=== PATIENT | male | born 1990 | race African-American/Black ===

== ENCOUNTER 2020-09-25 11:10 | Outpatient (REF) | payer OTHER, SELFPAY ==
--- NOTE | 2020-09-25 11:16 | XR_ITS ---
EXAMINATION: XR SHOULDER, LEFT CLINICAL INFORMATION: Left shoulder pain. COMPARISON: None TECHNIQUE: AP external rotation, Grashey, scapular Y, and axillary views of the left shoulder. FINDINGS: The bones and soft tissues are normal. No fracture. Glenohumeral and acromioclavicular alignment is anatomic with normal joint space. No abnormal soft tissue calcifications. XR/XR shoulder LT min 2V IMPRESSION: Unremarkable left shoulder.
== END 2020-09-25 11:11 | disposition home or self-care (01) ==
LOC: HO.XRAY 11:10
PROVIDERS: PCP Internal Medicine; Visit Provider Internal Medicine
DX: M25.519 Pain in unspecified shoulder (principal)
CPT/HCPCS: 73030

== ENCOUNTER 2021-04-08 07:46 | Outpatient (REF) | payer OTHER, SELFPAY ==
[2021-04-08 08:27] LABS: MANUAL DIFF FLAG NO
[2021-04-08 08:35] LABS: Basophils Absolute Auto 0.1 X10*3/uL (0.0-0.2); Basophils Percent Auto 0.5 % (0-2); Eosinophils Absolute Auto 0.5 X10*3/uL (0.0-0.4); Eosinophils Percent Auto 5.1 % (0-4); Hemoglobin 15.5 g/dl (14.0-18.0); Imm Gran Abs Auto 0.03 X10*3/uL (0.00-0.03); Imm Gran Pct Auto 0.3 % (0.0-0.4); Lymphocytes Absolute Auto 2.9 X10*3/uL (1.2-4.9); Lymphocytes Percent Auto 31.2 % (20-40); Mean Corpuscular HGB Conc 33.7 g/dl (31.0-36.0); Mean Corpuscular Hemoglobin 28.6 pg (27.0-33.0); Mean Corpuscular Volume 84.9 fL (80-98); Mean Platelet Volume 10.2 fL (9.4-12.4); Monocytes Absolute Auto 0.8 X10*3/uL (0.1-1.2); Monocytes Percent Auto 8.7 % (2-11); Neutrophils Absolute Auto 5.1 X10*3/uL (2.0-8.3); Neutrophils Percent Auto 54.2 % (45-73); Platelet Count 241 X10*3/uL (160-400); Red Blood Count 5.42 X10*6/uL (4.60-5.80); Red Cell Distribution Width 12.8 % (11.0-16.0); White Blood Count 9.4 X10*3/uL (4.8-10.8)
[2021-04-08 08:49] LABS: Alanine Aminotransferase 28 U/L (0-40); Albumin Level 4.6 g/dL (3.5-5.0); Alkaline Phosphatase 72 U/L (39-117); Anion Gap 13 (12-20); Aspartate Amino Transferase 27 U/L (5-37); Bilirubin Total 0.5 mg/dL (0.0-1.0); Blood Urea Nitrogen 12 mg/dL (9-16); Calcium 9.6 mg/dL (8.4-10.2); Carbon Dioxide 27 mmol/L (22-29); Chloride 105 mmol/L (96-108); Cholesterol 190 mg/dL; Estimated Glomerular Filt Rate > 60; Glucose Fasting 92 mg/dL (60-99); HDL Cholesterol 47 mg/dL; LDL Cholesterol Calculated 128 mg/dl; Potassium 4.8 mmol/L (3.3-5.1); Sodium 140 mmol/L (135-145); Total Protein 7.7 g/dL (6.5-8.0); Triglycerides 76 mg/dL
== END 2021-04-08 07:47 | disposition home or self-care (01) ==
LOC: HO.LAB 07:46
PROVIDERS: PCP Internal Medicine; Visit Provider Internal Medicine
DX: Z00.00 Encounter for general adult medical examination without abnormal findings (principal); E11.9 Type 2 diabetes mellitus without complications
CPT/HCPCS: 36415; 80053; 80061; 85025

== ENCOUNTER 2023-01-12 08:34 | Outpatient (REF) | payer OTHER, SELFPAY ==
[2023-01-12 09:22] LABS: Basophils Absolute Auto 0.1 X10*3/uL (0.0-0.2); Basophils Percent Auto 0.5 % (0-2); Eosinophils Absolute Auto 0.6 X10*3/uL (0.0-0.4); Eosinophils Percent Auto 2.6 % (0-4); Hematocrit 44.6 % (42.0-52.0); Hemoglobin 15.4 g/dl (14.0-18.0); Imm Gran Abs Auto 0.13 X10*3/uL (0.00-0.03); Imm Gran Pct Auto 0.6 % (0.0-0.4); Lymphocytes Absolute Auto 2.4 X10*3/uL (1.2-4.9); Lymphocytes Percent Auto 11.6 % (20-40); MANUAL DIFF FLAG SCAN; Mean Corpuscular HGB Conc 34.5 g/dl (31.0-36.0); Mean Corpuscular Hemoglobin 28.6 pg (27.0-33.0); Mean Corpuscular Volume 82.9 fL (80.0-98.0); Mean Platelet Volume 11.1 fL (9.4-12.4); Monocytes Absolute Auto 1.5 X10*3/uL (0.1-1.2); Monocytes Percent Auto 7.2 % (2-11); Neutrophils Absolute Auto 16.2 x10*3/uL (2.0-8.3); Neutrophils Percent Auto 77.5 % (45-73); Platelet Count 240 X10*3/uL (160-400); Red Blood Count 5.38 X10*6/uL (4.60-5.80); Red Cell Distribution Width 13.2 % (11.0-16.0); SCAN SMEAR FLAG 1; White Blood Count 20.9 X10*3/uL (4.8-10.8)
[2023-01-12 09:48] LABS: Alanine Aminotransferase 22 U/L (0-40); Albumin Level 4.3 g/dL (3.5-5.0); Alkaline Phosphatase 76 U/L (39-117); Anion Gap 12 (12-20); Aspartate Amino Transferase 17 U/L (5-37); Bilirubin Total 0.8 mg/dL (0.0-1.0); Blood Urea Nitrogen 10 mg/dL (9-16); Calcium 9.3 mg/dL (8.4-10.2); Carbon Dioxide 27 mmol/L (22-29); Chloride 104 mmol/L (96-108); Cholesterol 167 mg/dL; Estimated Glomerular Filt Rate > 60; Glucose Fasting 95 mg/dL (60-99); HDL Cholesterol 46 mg/dL; LDL Cholesterol Calculated 112 mg/dl; Potassium 4.5 mmol/L (3.3-5.1); Sodium 138 mmol/L (135-145); Total Protein 7.2 g/dL (6.5-8.0); Triglycerides 49 mg/dL
[2023-01-12 09:55] LABS: SLIDE REVIEW VERIFIED
[2023-01-19 15:59] LABS: Testosterone, Free 67.7 pg/mL (35.0-155.0); Testosterone, Total 378 ng/dL (250-1100)
== END 2023-01-12 08:35 | disposition home or self-care (01) ==
LOC: HO.LAB 08:34
PROVIDERS: PCP Internal Medicine; Visit Provider Internal Medicine
DX: Z13.0 Encounter for screening for diseases of the blood and blood-forming organs and certain disorders involving the immune mechanism (principal); I10 Essential (primary) hypertension; E29.1 Testicular hypofunction
CPT/HCPCS: 36415; 80053; 80061; 84402; 84403; 85025

== ENCOUNTER 2023-03-21 09:57 | Outpatient (AMB) | payer OTHER, SELFPAY ==
--- NOTE | 2023-03-21 09:58 | MHC.PC.OV ---
Vital Signs 03/21/23 10:00 Height 5 ft 6 in Weight 185 lb 4 oz BMI 29.9 BP 110/70 Blood Pressure Location Lt brachial Position Sitting Pulse 67 Pulse Source Pulse Oximeter Pulse Oximetry (%) 99 Oxygen Delivery Method Room Air Intake Visit Reasons: PE Intake Note: Patient is here today for a physical. 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 Supervisor Cutting Department: Not Required per policy Accompanied by: Self / Same As Patient Allergies shellfish Allergy (Unknown, Uncoded 03/21/23 09:59) Itchiness Medication List - Last Reconciled 03/21/23 by Johnathon Desir MD cetirizine (Zyrtec) 10 mg PO DAILY PRN clotrimazole-betamethasone 1-0.05 % 1 appl topical BID 2 weeks fluconazole (Diflucan) 100 mg PO DAILY levocetirizine (Xyzal) 5 mg PO DAILY naproxen (Naprosyn) 500 mg PO BID PRN Tobacco use date assessed: 03/21/23 Dental Screening Dental Screen Date: 03/21/23 Did you have a dental visit in the last 12 months?: Yes Did you have a dental problem in the last 6 months where you did not have access to dental care?: No Was dental information given to patient?: Patient has dentist HPI PE HPI Details allergic rhinitis; doing well [facility] Surgical History History of inguinal hernia repair History of repair of ACL Social History (Updated 03/21/23 @ 10:03 by BILLY Franklin) Housing: House Alcohol intake: current Alcohol intake frequency: a few times a week Alcohol type: beer Patient Tobacco Use Status: Never used Tobacco e-Cigarette/Vaping Use: Never Used Second Hand Smoke Exposure: No service: No Current occupational status: employed Cognitive needs: No Hearing needs: No Vision needs: No Questionnaire PHQ-9 Over the last 2 weeks, how often have you been bothered by any of the following problems? 1. Little interest or pleasure in doing things: not at all 2. Feeling down, depressed, or hopeless: not at all 3. Trouble falling or staying asleep, or sleeping too much: not at all 4. Feeling tired or having little energy: not at all 5. Poor appetite or overeating: not at all 6. Feeling bad about yourself - or that you are a failure or have let yourself or your family down: not at all 7. Trouble concentrating on things, such as reading the newspaper or watching television: not at all 8. Moving or speaking so slowly that other people could have noticed. Or the opposite - being so fidgety or restless that you have been moving around a lot more than usual: not at all 9. Thoughts that you would be better off or of hurting yourself in some way: not at all Total score: 0 Depression Screening Interpretation: Negative 55232 - PHQ-9 Billing: Yes Source: Developed by Drs. Neptali Travis, Ofe Jansen, Dakota Jiang and colleagues, with an educational primo from [employer]. Thrive Questionnaire Date Thrive assessed: 03/21/23 I am a: Patient What is your living situation today?: I have a steady place to live Within the past 12 months, did the food you bought not last and you didn't have the money to get more?: Never true Within the past 12 months, did you worry whether your food would run out before you got money to buy more?: Never true Do you have trouble paying for medicines?: No Do you have trouble getting transportation to medical appointments?: No Do you have trouble paying your heating and electricity bill?: No Do you have trouble taking care of your child, family member or friend?: No Do you have trouble with day-to-day activities such as bathing, preparing meals, shopping, managing finances, etc.?: No Are you currently unemployed and looking for a job?: No Are you interested in more education?: No Currently or been in a relationship where the following occur: no concerns reported AUDIT C Alcohol Use Questionnaire (AUDIT-C) 1. How often do you have a drink containing alcohol?: 2-4 times a month 2. How many drinks containing alcohol do you have on a typical day when you are drinking?: 1 or 2 Total Score: 2 Score Reviewed/Action Taken: Yes FARZANA-7 AMB Questionnaire FARZANA-7 Date FARZANA - 7 assessed: 03/21/23 Feeling nervous, anxious, or on edge: 0 = Not at all Not being able to stop or control worryin = Not at all Worrying too much about different things: 0 = Not at all Trouble relaxin = Not at all Being so restless that it is hard to sit still: 0 = Not at all Becoming easily annoyed or irritable: 0 = Not at all Feeling afraid as if something awful might happen: 0 = Not at all Total FARZANA-7 score (0-4 normal; 5-9 mild; 10-14 moderate; 15-21 severe): 0 Source: Developed by Drs. Neptali Travis, Ofe Jansen, Dakota Jiang and colleagues, with an educational primo from [employer]. FARZANA-7 Assessment Billing FARZANA-7 Assessment Tool: FARZANA-7 Assessment 34858 Review of Systems Const Denies chills, Denies fatigue, Denies headache(s) and Denies weight loss Eyes Denies change in vision, Denies diplopia and Denies eye pain ENT Denies vertigo, Denies dizziness, Denies headache(s) and Denies nasal discharge Card Denies chest pain, Denies rapid heart rate and Denies dyspnea on exertion Resp Denies chest congestion, Denies cough, Denies pain with cough and Denies dyspnea on exertion GI Denies abdominal pain, Denies hematochezia and Denies change in bowel habits Musc Denies myalgias, Denies arthralgias and Denies joint swelling Skin/Breast Denies lesions and Denies unusual bruising Neuro Denies vertigo, Denies dizziness, Denies headache(s) and Denies focal weakness Endo Denies fatigue Physical exam (Primary Care) Vital Signs: Last Vital Signs Pulse 67 03/21/23 10:00 BP 110/70 03/21/23 10:00 Pulse Ox 99 03/21/23 10:00 Oxygen Delivery Method Room Air 03/21/23 10:00 BMI result Body Mass Index 29.9 Tobacco/Smoking Status: Tobacco use Status Tobacco use date assessed 03/21/23 03/21/23 10:04 Patient Tobacco Use Status Never used Tobacco 03/21/23 10:04 e-Cigarette/Vaping Use Never Used 03/21/23 10:04 PHQ-9: PHQ-9 Score PHQ-9: Total score 0 03/21/23 10:04 Depression Screening Interpretation: Negative Thrive Assessment: Date of Thrive Assessment Date Thrive assessed 03/21/23 03/21/23 10:04 Currently or been in a relationship where the following occur: no concerns reported Const General: cooperative, healthy appearing and no acute distress Orientation/consciousness: oriented to person, oriented to place and oriented to time HENMT Head: Yes normal to inspection, Yes normocephalic and Yes atraumatic Mouth: Normal oral and palatal mucosa present and tongue normal Throat: Yes posterior oropharynx normal and Yes uvula midline Eyes General: appearance normal, both eyes and all related structures Neck Neck: Yes normal visual inspection, Yes full ROM and Yes no lymphadenopathy Thyroid: Thyroid normal Carotids: normal carotid upstroke Chest Chest palpation & inspection: normal inspection of the chest Resp Effort & Inspection: normal respiratory effort and able to speak in complete sentences Auscultation: clear to auscultation bilaterally Cardio Jugular venous distension: no JVD Palpation: normal PMI Rate: regular rate Rhythm: regular rhythm Heart sounds: S1 normal heart sound present and S2 normal heart sound present GI Inspection: Yes normal to inspection Palpation (GI): Soft to palpation and No hepatosplenomegaly present Auscultation: normal bowel sounds General: Yes no CVA tenderness Back/Spine/Pelvis Back: no CVA tenderness Skin General skin exam: no rashes or lesions noted Neuro General: oriented to person, oriented to place and oriented to time Extrem General: Yes normal to inspection and Yes full ROM Assessment and Plan Assessment & Plan (1) Physical exam: Code(s): Z00.00 - Encounter for general adult medical examination without abnormal findings Plan: healthy (2) Allergic rhinitis: Code(s): J30.9 - Allergic rhinitis, unspecified Plan: stable; same rx Coding Level of Care Code Est Pt Prev Care 18-39y(64021) Diagnoses Physical exam Z00.00 Allergic rhinitis J30.9 Additional Codes FARZANA-7 Assessment Billing - FARZANA-7 Assessment Tool: FARZANA-7 Assessment [id number] ([id number])
[2023-03-21 10:00] VITALS: BP 110/70; PULSE 67; O2SAT 99; BMI 29.9
== END 2023-03-21 10:14 | disposition home or self-care (01) ==
PROVIDERS: PCP Internal Medicine; Visit Provider Internal Medicine
DX: Z00.00 Encounter for general adult medical examination without abnormal findings (principal); J30.9 Allergic rhinitis, unspecified
CPT/HCPCS: 99395

== ENCOUNTER 2024-01-20 19:03 | Emergency (ER) | payer OTHER, SELFPAY ==
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
[2024-01-20 19:25] VITALS: BP 137/84; PULSE 82; RESP 16; TEMP 37; O2SAT 99; BMI 31.5
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
[2024-01-20 20:13] VITALS: BP 154/100; PULSE 72; RESP 19; TEMP 36.6; O2SAT 98
[2024-01-20] MEDS: Morphine Sulfate 4 MG/ML CARTRIDGE IVPUSH (20:32)
[2024-01-20 20:37] LABS: MANUAL DIFF FLAG NO
[2024-01-20 20:38] LABS: Basophils Absolute Auto 0.1 X10*3/uL (0.0-0.2); Basophils Percent Auto 0.3 % (0-2); Eosinophils Absolute Auto 0.2 X10*3/uL (0.0-0.4); Eosinophils Percent Auto 1.2 % (0-4); Hemoglobin 14.7 g/dl (14.0-18.0); Imm Gran Abs Auto 0.09 X10*3/uL (0.00-0.03); Imm Gran Pct Auto 0.5 % (0.0-0.4); Lymphocytes Absolute Auto 1.7 X10*3/uL (1.2-4.9); Mean Corpuscular Hemoglobin 29.3 pg (27.0-33.0); Mean Corpuscular Volume 83.8 fL (80.0-98.0); Mean Platelet Volume 9.7 fL (9.4-12.4); Monocytes Absolute Auto 1.3 X10*3/uL (0.1-1.2); Monocytes Percent Auto 6.9 % (2-11); Neutrophils Absolute Auto 15.8 x10*3/uL (2.0-8.3); Neutrophils Percent Auto 82.1 % (45-73); Platelet Count 264 X10*3/uL (160-400); Red Blood Count 5.01 X10*6/uL (4.60-5.80); Red Cell Distribution Width 12.6 % (11.0-16.0); White Blood Count 19.3 X10*3/uL (4.8-10.8)
[2024-01-20] MEDS: Diphth,Pertus(ACell),Tet Adult 0.5 ML SYRINGE IM (20:42)
[2024-01-20 20:47] LABS: Prothrombin Time 11.7 SEC (11.1-13.3)
[2024-01-20 20:50] LABS: Partial Thromboplastin Time 25.8 SEC (26.0-36.8)
[2024-01-20 20:54] LABS: Alanine Aminotransferase 38 U/L (0-40); Albumin Level 4.5 g/dL (3.5-5.0); Alkaline Phosphatase 53 U/L (39-117); Anion Gap 17 (12-20); Aspartate Amino Transferase 39 U/L (5-37); Bilirubin Direct 0.1 mg/dL (0.0-0.5); Bilirubin Total 0.4 mg/dL (0.0-1.0); Blood Urea Nitrogen 19 mg/dL (9-16); Calcium 9.1 mg/dL (8.4-10.2); Carbon Dioxide 22 mmol/L (22-29); Chloride 105 mmol/L (96-108); Estimated Glomerular Filt Rate > 60; Glucose Random 130 mg/dL (60-115); Lipase 82 U/L (8-78); Sodium 140 mmol/L (135-145); Total Protein 7.5 g/dL (6.5-8.0)
[2024-01-20] MEDS: HYDROmorphone HCl 1 MG/ML SYRINGE IVPUSH (21:01)
[2024-01-20] MEDS: Lidocaine HCl 1 % MPF 5 ML VIAL INFILTRATI (21:02)
[2024-01-20 21:07] VITALS: BP 147/97
[2024-01-20] MEDS: 0.9 % Sodium Chloride 1,000 ML 999 ML IV (22:35)
[2024-01-21] MEDS: HYDROmorphone HCl 0.5 MG/0.5 ML SYRINGE IVPUSH
[2024-01-21] MEDS: Amoxicillin/Potassium Clav 875 MG TABLET PO ×2 (01:22→08:21)
[2024-01-21] MEDS: oxyCODONE HCl Immed Release 5 MG TABLET PO ×3 (01:24→13:13)
[2024-01-21 06:00] VITALS: BP 156/97; PULSE 72; RESP 16; O2SAT 96
--- NOTE | 2024-01-21 08:22 | PC.NURSE ---
pt resting quietly, sling and knee immobilizer in place. medicated as charted, awaiting disposition
[2024-01-21] MEDS: Bacitracin Oint 0.9 GM PACKET 1 APPL TOPICAL (14:16)
[2024-01-21 14:28] VITALS: BP 168/96; PULSE 65; RESP 18; TEMP 36.6; O2SAT 98
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
--- NOTE | 2024-01-23 13:30 | MHC.CM.ED ---
[facility] has not been able to be arranged. CM broker assistant has been asked to reach out to PCP's office to follow up with [facility] for senior living and physical therapy.
== END 2024-01-21 14:38 | disposition still patient (30) ==
PROVIDERS: Physician Assistant Medical; Emergency Provider Internal Medicine; PCP Internal Medicine
DX: S43.101A Unspecified dislocation of right acromioclavicular joint, initial encounter (principal); S82.141A Displaced bicondylar fracture of right tibia, initial encounter for closed fracture; S51.812A Laceration without foreign body of left forearm, initial encounter; V27.09XA Other motorcycle driver injured in collision with fixed or stationary object in nontraffic accident, initial encounter; M25.522 Pain in left elbow; M25.561 Pain in right knee; Y93.89 Activity, other specified; Y92.414 Local residential or business street as the place of occurrence of the external cause; Y99.9 Unspecified external cause status; Z23 Encounter for immunization
CPT/HCPCS: 12002; 36415; 70450; 71260; 72125; 73030; 73080; 73130; 73562; 73700; 74177; 80048; 80076; 83690; 85025; 85610; 85730; 90471; 90715; 96361; 96374; 96375; 96376; 99284; J1170; J2270

== ENCOUNTER → 2024-01-20 20:50 | Outpatient (BNV) | payer OTHER, SELFPAY | PROVIDERS: Emergency Provider Internal Medicine; PCP Internal Medicine; Visit Provider Physician Assistant | DX: S82.141A Displaced bicondylar fracture of right tibia, initial encounter for closed fracture (principal); S43.101A Unspecified dislocation of right acromioclavicular joint, initial encounter | CPT/HCPCS: 99283 ==

== ENCOUNTER 2024-01-25 10:42 | Outpatient (AMB) | payer OTHER, SELFPAY ==
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
[2024-01-25 10:57] VITALS: BMI 31.5
== END 2024-01-25 12:27 | disposition home or self-care (01) ==
PROVIDERS: PCP Internal Medicine; Visit Provider Physician Assistant
DX: S43.121A Dislocation of right acromioclavicular joint, 100%-200% displacement, initial encounter (principal); S82.121 Displaced fracture of lateral condyle of right tibia; Z04.3 Encounter for examination and observation following other accident; R60.0 Localized edema
CPT/HCPCS: 99214

== ENCOUNTER → 2024-01-25 10:42 | Outpatient (BNVA) | payer OTHER, SELFPAY | PROVIDERS: PCP Internal Medicine; Visit Provider Physician Assistant ==

== ENCOUNTER 2024-01-26 14:16 | Outpatient (REF) | payer OTHER, SELFPAY ==
--- NOTE | ~2024-01-26 | US_ITS ---
EXAMINATION: US VENOUS ULTRASOUND WITH DOPPLER LOWER EXTREMITY, RIGHT CLINICAL INFORMATION: Edema. Pain. COMPARISON: None available. TECHNIQUE: Ultrasound of the deep veins is performed from the hip to the calf with compression sonography and color and pulse Doppler assessment. Spectral analysis with color-flow imaging is performed. FINDINGS: There is normal venous compression and respiratory variation and augmented flow. The visualized common femoral vein, superficial femoral vein, profunda femoral vein, popliteal vein, and the trifurcation region shows no evidence of deep venous thrombosis. There is no significant popliteal fossa cyst. If the patient's symptoms persist, followup ultrasound in 5 days 7 days might be of value to exclude proximal propagation from a non-visualized calf vein. US/US venous duplex LE RT IMPRESSION: No DVT demonstrated in the right lower extremity.
== END 2024-01-26 14:17 | disposition home or self-care (01) ==
LOC: HO.HMGCX 14:16
PROVIDERS: PCP Internal Medicine; Visit Provider Physician Assistant
DX: R60.0 Localized edema (principal)
CPT/HCPCS: 93971

== ENCOUNTER 2024-01-30 09:04 | Observation (INO) | payer OTHER, SELFPAY ==
[2024-01-30] VITALS (17 sets, daily range): BP systolic 127–179; BP diastolic 66–101; PULSE 68–98; RESP 16–21; TEMP 36.2–37.6; O2SAT 92–100; BMI 31.5
--- NOTE | ~2024-01-30 | FL_ITS ---
EXAMINATION: XR FLUOROSCOPY WITH IMAGES CLINICAL INFORMATION: ORIF right tibia. COMPARISON: None available. TECHNIQUE: Fluoroscopy Supervised By: Dr. Trever Cartwright. Fluoroscopy Time: 0.8 minutes. Cumulative Dose: 7 mGy. DAP: 0.128 Gycm2. Images: 3. FINDINGS: Images demonstrate laterally placed plate and multiple screws in the right proximal tibia. There is ghost artifact in the proximal tibial shaft from previous orthopedic hardware. There is increased oblique sclerosis of the lateral proximal tibial metaphysis questionable for changes from trauma. FL/FL guidance in OR IMPRESSION: Fluoroscopy guidance for ORIF right tibia.
[2024-01-30] MEDS: Lactated Ringers 1,000 ML 100 ML IVCONT ×2 (09:43→17:19)
--- NOTE | 2024-01-30 11:00 | P.CONAN_ITS ---
Documented by User: Adia Shahid NP 01/29/24 10:34 HPI - Anesthesia Eval Consult details Narrative: 33yo M for Right Tibial plateau ORIF US r/o DVT - negative PMFSH Active Problems Active Problems: All Active Problems Edema of right lower extremity (Acute) Allergic rhinitis (Acute) Obesity (Acute) Tinea corporis (Acute) Physical exam (Acute) Shoulder pain (Acute) Surgical History Surgical History (Updated 01/25/24 @ 10:56 by BILLY Wooten) Hx of wisdom tooth extraction History of inguinal hernia repair History of repair of ACL Social History Social History (Updated 01/25/24 @ 10:57 by BILLY Wooten) Housing: House Alcohol intake: current Alcohol intake frequency: former alcohol drinker Alcohol type: beer Patient Tobacco Use Status: Never used Tobacco e-Cigarette/Vaping Use: Never Used Second Hand Smoke Exposure: No Use of substances other than those prescribed or required for medical reasons: Yes Substance Use Type: Marijuana Are you DNR?: No Advance Directives: No Advance Directives Information Provided: Yes service: No Current occupational status: employed Current occupation: [employer], right hand dominant Cognitive needs: No Hearing needs: No Vision needs: No Meds Allergies Allergy/AdvReac Type Severity Reaction Status Date / Time shellfish Allergy Unknown Itchiness Uncoded 01/25/24 11:11 Home Medications ?Medication ?Instructions ?Recorded ?Confirmed ?Last Taken ?Type cetirizine 10 mg capsule (Zyrtec) 10 mg PO DAILY PRN allergies 03/12/21 03/21/23 01/30/24 History levocetirizine 5 mg tablet (Xyzal) 5 mg PO DAILY 03/12/21 03/21/23 Unknown History Exam Pertinent Lab Results Pertinent Lab Results: Laboratory Tests 01/20/24 20:30 WBC 19.3 H Hgb 14.7 Hct 42.0 Plt Count 264 Sodium 140 Potassium 4.0 Chloride 105 Carbon Dioxide 22 BUN 19 H Creatinine 1.13 Narrative Narrative: US venous duplex LE RT 12/2023 IMPRESSION: No DVT demonstrated in the right lower extremity. Assessment and Plan Assessment Anesthesia Assessment: Chart Reviewed Documented by User: Mohini Rosales DO 01/30/24 11:15 HPI - Anesthesia Eval Consult details Narrative: 33yo M for Right Tibial plateau ORIF US r/o DVT - negative Smokes marijuana [facility] Family History Family history of problems with anesthesia: No Surgical History Surgical History (Updated 01/25/24 @ 10:56 by BILLY Wooten) Hx of wisdom tooth extraction History of inguinal hernia repair History of repair of ACL History of Problems with Anesthesia: No Social History Social History (Updated 01/25/24 @ 10:57 by BILLY Wooten) Housing: House Alcohol intake: current Alcohol intake frequency: former alcohol drinker Alcohol type: beer Patient Tobacco Use Status: Never used Tobacco e-Cigarette/Vaping Use: Never Used Second Hand Smoke Exposure: No Use of substances other than those prescribed or required for medical reasons: Yes Substance Use Type: Marijuana Are you DNR?: No Advance Directives: No Advance Directives Information Provided: Yes service: No Current occupational status: employed Current occupation: [employer], right hand dominant Cognitive needs: No Hearing needs: No Vision needs: No Meds Allergies Allergy/AdvReac Type Severity Reaction Status Date / Time shellfish Allergy Unknown Itchiness Uncoded 01/25/24 11:11 Home Medications ?Medication ?Instructions ?Recorded ?Confirmed ?Last Taken ?Type cetirizine 10 mg capsule (Zyrtec) 10 mg PO DAILY PRN allergies 03/12/21 03/21/23 01/30/24 History levocetirizine 5 mg tablet (Xyzal) 5 mg PO DAILY 03/12/21 03/21/23 Unknown History Exam Exam Date and Time: January 30, 2024 1058 Height,Weight and Vital Signs: Height 5 ft 6 in Weight 88.451 kg Vital Signs Temperature 98.3 F 01/30/24 09:21 Pulse Rate 95 01/30/24 09:21 Respiratory Rate 16 01/30/24 09:21 Blood Pressure 141/90 H 01/30/24 09:21 Pulse Oximetry 99 01/30/24 09:21 Oxygen Delivery Method Room Air 01/30/24 09:21 Temperature 98.3 F 01/30/24 09:21 Pulse Rate 95 01/30/24 09:21 Respiratory Rate 16 01/30/24 09:21 Blood Pressure 141/90 H 01/30/24 09:21 Pulse Oximetry 99 01/30/24 09:21 Oxygen Delivery Method Room Air 01/30/24 09:21 Airway Mallampati Class: I TM Dist: >3cm Neck ROM: Full Loose/Missing/Broken Teeth: No (patient denies any loose or broken teeth) Heart: S1S2 Lungs: CTAB Assessment and Plan Assessment Anesthesia Assessment: Anesthesia Plan Discussed and Chart Reviewed Final Anesthetic Review Family History of Problems with Anesthesia: No History of Problems with Anesthesia: No NPO: Yes ASA Class: II Final Preanesthetic Review: No Changes in Pt Med Stat, Meds/Allgs Chart Reviewed, Consent Obtained/Reviewed and Anes Risks/Benef Reviewed Patient Risk: Low Procedure Risk: Intermediate Anesthetic Plan Anesthetic Plan: GA and Agree w/ Assess. and Plan Disposition: Standard PACU
--- NOTE | 2024-01-30 11:15 | MHC.SHP ---
Pre-Procedural Eval Section A - 24 Hr Update-Section A only Date of Service: 01/30/24 The patient is an INPATIENT: No Changes since office visit: No Cold of Flu in the past 2 weeks, No New Medical Problems, No Changes in Medication and No Patient answered all questions The patient has been examined within 24 hours of the surgical procedure. The History & Physical has been completed within 30 days and I have reviewed it.: Yes Section B - Complete if H&P > 30 days Chief Complaint: ORIF right tribial plateau Allergies: Allergies Allergy/AdvReac Type Severity Reaction Status Date / Time shellfish Allergy Unknown Itchiness Uncoded 01/25/24 11:11 Plan I have reviewed the history and physical and performed a pertinent physical examination on my patient. No changes have occurred unless specified. Time Spent With Patient Time: Total time managing care of this patient today ____ minutes.
--- NOTE | 2024-01-30 14:18 | P.BOP_ITS ---
Brief Operative Note Date of Service: 01/30/24 Pre-op diagnosis: Right tibial plateau fracture Post-op diagnosis: same Procedure: ORIF right tibial plateau fracture Implants: Winnie lateral tibial plateau locking plate Hydroset bone substitue 10 ml Surgeon: Trever Cartwright MD Anesthesia: GETA and local Was an Grocery Bagger used for this Procedure?: Yes Grocery Bagger: Chandler Chinchilla Estimated blood loss (mL): 50 Tourniquet time (min): 89 IV fluids (mL): 1,200 Pathology: none sent Condition: stable Disposition: PACU
[2024-01-30] MEDS: fentaNYL citrate/PF 100 MCG/2 ML VIAL 50 MCG IVPUSH ×4 (14:56→15:21)
[2024-01-30] MEDS: HYDROmorphone HCl 0.5 MG/0.5 ML SYRINGE 0.25 MG IVPUSH (17:13)
[2024-01-30] MEDS: ceFAZolin Sodium/Dextrose,Iso 2 GM/50 ML PIGGYBACK IV (17:17)
[2024-01-30] MEDS: 0.9 % Sodium Chloride Flush 3 ML SYRINGE IVFLUSH (17:24)
[2024-01-30] MEDS: oxyCODONE HCl Immed Release 5 MG TABLET PO (17:49)
[2024-01-30] MEDS: Acetaminophen 1,000 MG/100 ML PIGGYBACK 400 MG IV (18:13)
[2024-01-30] MEDS: Docusate Sodium 100 MG CAPSULE PO (20:27)
[2024-01-30] MEDS: oxyCODONE HCl ER 10 MG TAB.ER.12H PO (20:28)
[2024-01-30] MEDS: Celecoxib 200 MG CAPSULE PO (20:28)
--- NOTE | 2024-01-30 21:20 | PHA.MEDREC ---
Pharmacy Consult ? Medication Reconciliation Pharmacy has completed the medication reconciliation. Confirmed medications with patient.
[2024-01-31] MEDS: oxyCODONE HCl Immed Release 5 MG TABLET 10 MG PO ×4 (00:12→15:22)
[2024-01-31] MEDS: Acetaminophen 1,000 MG/100 ML PIGGYBACK 400 MG IV ×2 (01:02→08:17)
[2024-01-31] MEDS: Lactated Ringers 1,000 ML 100 ML IVCONT (02:56)
[2024-01-31 03:06] VITALS: BP 148/70; PULSE 77; RESP 18; TEMP 36.3; O2SAT 100
[2024-01-31 06:15] LABS: Basophils Absolute Auto 0.1 X10*3/uL (0.0-0.2); Basophils Percent Auto 0.3 % (0-2); Eosinophils Absolute Auto 0.1 X10*3/uL (0.0-0.4); Eosinophils Percent Auto 0.4 % (0-4); Hematocrit 35.6 % (42.0-52.0); Hemoglobin 12.8 g/dl (14.0-18.0); Imm Gran Abs Auto 0.08 X10*3/uL (0.00-0.03); Imm Gran Pct Auto 0.5 % (0.0-0.4); Lymphocytes Absolute Auto 2.2 X10*3/uL (1.2-4.9); Lymphocytes Percent Auto 13.4 % (20-40); MANUAL DIFF FLAG SCAN; Mean Corpuscular Hemoglobin 28.9 pg (27.0-33.0); Mean Corpuscular Volume 80.4 fL (80.0-98.0); Mean Platelet Volume 9.4 fL (9.4-12.4); Neutrophils Absolute Auto 11.9 x10*3/uL (2.0-8.3); Neutrophils Percent Auto 73.4 % (45-73); Platelet Count 412 X10*3/uL (160-400); Red Blood Count 4.43 X10*6/uL (4.60-5.80); Red Cell Distribution Width 11.7 % (11.0-16.0); SCAN SMEAR FLAG 1; White Blood Count 16.2 X10*3/uL (4.8-10.8)
[2024-01-31 06:20] LABS: Anion Gap 16 (12-20); Blood Urea Nitrogen 13 mg/dL (9-16); Calcium 9.4 mg/dL (8.4-10.2); Carbon Dioxide 25 mmol/L (22-29); Chloride 100 mmol/L (96-108); Creatinine Clr Calc Pharmacy 132.6; Estimated Glomerular Filt Rate > 60; Glucose Fasting 112 mg/dL (60-99); Potassium 3.8 mmol/L (3.3-5.1); Sodium 137 mmol/L (135-145)
[2024-01-31] MEDS: HYDROmorphone HCl 0.5 MG/0.5 ML SYRINGE 0.25 MG IVPUSH ×2 (06:38→12:56)
[2024-01-31 07:39] LABS: SLIDE REVIEW VERIFIED
[2024-01-31 07:47] VITALS: BP 178/93; PULSE 76; RESP 18; TEMP 36.3; O2SAT 100
--- NOTE | 2024-01-31 07:51 | P.PNOP_ITS ---
Subjective Subjective Date of Service: 01/31/24 Interval history: POD1 s/p right tibial plateau ORIF Patient is resting in bed No overnight events Patient reports uncontrolled pain. Made adjustments overnight. No additional complaints Physical Exam Vital Signs: Vital Signs: Last Vital Signs Temp 97.4 F 01/31/24 07:47 Pulse 76 01/31/24 07:47 Resp 18 01/31/24 07:47 BP 178/93 H 01/31/24 07:47 Pulse Ox 100 01/31/24 07:47 O2 Del Method Room Air 01/31/24 07:47 O2 Flow Rate 2 01/30/24 15:55 BMI result Body Mass Index 31.5 Const: General: cooperative, healthy appearing and no acute distress Resp: Effort & Inspection: normal respiratory effort and able to speak in complete sentences Cardio: Rate: regular rate Peripheral pulses: Peripheral pulses 2+ thr oughout GI: Palpation (GI): Soft to palpation Skin: Lesions: no lesions Rashes: no rashes Extrem: Other: Right lower extremity compartments are soft. Incision site is clean dry and intact. Bandage intact. NVI. Procedures Date of Service Date of Service: 01/31/24 Progress Note: A&P Assessment and plan (1) Closed fracture of right tibial plateau: Status: Inactive Plan Continue pain mgmnt Begin ASA for dvt ppx begin PT for right tibial plateau ORIF. NWB x3 months. Brace on at all times while ambulating and extension. Brace may be unlocked to perform range of motio n. Dispo planning-Pending PT eval, pain mgmnt Patient will need ongoing hospitalization for pain management Time Spent With Patient Time: Total time managing care of this patient today ____ minutes. Quality Stroke Does the patient have a stroke diagnosis?: No VTE Prior VTE?: No VTE Risk Level:: Medical - moderate - high VTE Device Contraindication: N/A - Device Ordered VTE Drug Contraindication: N/A - Med Ordered
--- NOTE | 2024-01-31 08:08 | P.CONHOSP_ITS ---
History of Present Illness Data of Consult Service Date: 01/31/24 Primary Care Provider: Johnathon Desir MD HPI 33-year-old man admitted by Orthopedic surgery and is status post ORIF of right tibial plateau fracture. Surgery was unremarkable. Patient has been able to drink without any and vomiting. Patient is hemodynamically stable with mildly elevated blood pressure. He has no acute medical complaints at this time. Review of Systems 2 Review of Systems: Denies any recent fever chills or decrease in appetite respiratory denies any shortness of breath or cough cardiovascular denied chest pain gastrointestinal denies any dysphagia abdominal pain nausea vomiting or diarrhea genitourinary denies any dysuria frequency or hematuria musculoskeletal right knee pain neuropsych denies any weakness or seizures all other systems reviewed are negative [facility] Medical History (Updated 02/02/24 @ 00:02 by John Menjivar) Edema of right lower extremity Allergic rhinitis Obesity Tinea corporis Physical exam Shoulder pain Surgical History Hx of wisdom tooth extraction History of inguinal hernia repair History of repair of ACL Social History (Updated 01/25/24 @ 10:57 by Sahra Cid Ran) Housing: House Alcohol intake: current Alcohol intake frequency: former alcohol drinker Alcohol type: beer Patient Tobacco Use Status: Never used Tobacco e-Cigarette/Vaping Use: Never Used Second Hand Smoke Exposure: No Substance Use Type: Marijuana service: No Current occupational status: employed Current occupation: [employer], right hand dominant Cognitive needs: No Hearing needs: No Vision needs: No Meds Allergies Allergy/AdvReac Type Severity Reaction Status Date / Time shellfish Allergy Unknown Itchiness Uncoded 01/25/24 11:11 Active Medications: Current Medications Aspirin (Aspirin 325 Mg Tablet) 325 mg PO BID [facility] Celecoxib (Celecoxib 200 Mg Capsule) 200 mg PO BID [facility] Last Admin: 01/30/24 20:28 Dose: 200 mg Docusate Sodium (Docusate Sodium 100 Mg Capsule) 100 mg PO BID [facility] Last Admin: 01/30/24 20:27 Dose: 100 mg Hydromorphone HCl (Hydromorphone Hcl 0.5 Mg/0.5 Ml Syringe) 0.25 mg IVPUSH Q3H PRN; Protocol PRN Reason: Pain, Severe (Pain Scale 7-10) Last Admin: 01/31/24 06:38 Dose: 0.25 mg Lactated Ringer's (Lr) 1,000 mls @ 100 mls/hr IVCONT .Q10H [facility] Stop: 01/31/24 14:36 Last Admin: 01/31/24 02:56 Dose: 100 mls/hr Ondansetron HCl (Ondansetron Hcl 4 Mg/2 Ml Vial) 4 mg IVPUSH Q8H PRN PRN Reason: Nausea and Vomiting Oxycodone HCl (Oxycodone Hcl Er 10 Mg Tab.Er.12h) 10 mg PO BID [facility] Last Admin: 01/30/24 20:28 Dose: 10 mg Oxycodone HCl (Oxycodone Hcl Immed Release 5 Mg Tablet) 10 mg PO Q4H PRN PRN Reason: Pain, Moderate(Pain Scale 4-6) Last Admin: 01/31/24 05:41 Dose: 10 mg Sodium Chloride (0.9 % Sodium Chloride Flush 3 Ml Syringe) 3 ml IVFLUSH QSHIFT [facility] Last Admin: 01/31/24 00:20 Dose: Not Given Home Medications ?Medication ?Instructions ?Recorded ?Confirmed ?Last Taken ?Type levocetirizine 5 mg tablet (Xyzal) 5 mg PO DAILY 03/12/21 01/30/24 01/30/24 02:00 History Physical Exam 2 Vital Signs and Narrative: Vital Signs: Last Vital Signs Temp 97.4 F 01/31/24 07:47 Pulse 76 01/31/24 07:47 Resp 18 01/31/24 07:47 BP 178/93 H 01/31/24 07:47 Pulse Ox 100 01/31/24 07:47 O2 Del Method Room Air 01/31/24 07:47 O2 Flow Rate 2 01/30/24 15:55 BMI result Body Mass Index 31.5 Appearing in no acute distress head is normocephalic atraumatic eyes pupils are PERRLA sclera is anicteric mouth throat mucous membranes are intact and moist neck is supple no lymphadenopathy, no JVD noted lung sounds are clear to auscultation heart regular rate rhythm, clear S1, S2 positive bowel sounds, abdomen is soft, nontender neuro patient is alert x3, no focal deficits Right lower extremity surgical dressing intact, surgical wound not visualized Results Labs 01/31/24 06:03 01/31/24 06:03 Labs: Laboratory Results - last 24 hr 01/31/24 06:03 MCV 80.4 MCH 28.9 MCHC 36.0 RDW 11.7 Plt Count 412 H D MPV 9.4 Immature Gran % (Auto) 0.5 H Neut % (Auto) 73.4 H Lymph % (Auto) 13.4 L Yell % (Auto) 12.0 H Eos % (Auto) 0.4 Baso % (Auto) 0.3 Lymph # (Auto) 2.2 Yell # (Auto) 2.0 H Eos # (Auto) 0.1 Baso # (Auto) 0.1 Abs Immat Gran (auto) 0.08 H Absolute Neuts (auto) 11.9 H Absolute Nucleated RBC 0.000 Nucleated RBC % (auto) 0.0 Smear Tech's Comments VERIFIED Anion Gap 16 Estim Creat Clear Calc 132.6 Estimated GFR > 60 Fasting Glucose 112 H Calcium 9.4 Assessment and Plan (1) Obesity: Status: Inactive Plan 33-year-old man admitted for right tibial plateau fracture ORIF of right tibial plateau fracture Management as per surgical team Pain management Elevated blood pressure reading No diagnosed history of hypertension Blood pressures have been elevated more recently after injury Previous blood pressures from primary care provider office visits were within normal limits Will add low dose amlodipine 2.5 mg, patient needs to follow up with pcp to report blood pressure readings for med adjustment Obesity. BMI 31.5 Discussed importance of weight management as this may be contributing to worsening of other comorbidities Medical consultation complete. Will sign off
[2024-01-31] MEDS: oxyCODONE HCl ER 10 MG TAB.ER.12H PO (08:18)
[2024-01-31] MEDS: Celecoxib 200 MG CAPSULE PO (08:18)
[2024-01-31 09:54] VITALS: BP 155/89; PULSE 68; RESP 18; TEMP 36.7; O2SAT 97
--- NOTE | 2024-01-31 10:52 | MHC.CM.PN ---
PRADEEP DELIVERED. PT LIVES WITH [facility] AND CHILDREN. INDEPENDENT AT BASELINE AND EMPLOYED F/T. PT DECLINES HCP AT THIS TIME. PCP DR. SIMPSON DP: HOME WITH NEW [facility] FOR PT/OT. REFERRALS PLACED. [facility] WILL TRANSPORT HOME. CM WILL CONTINUE TO FOLLOW FOR ANY CHANGE TO DC PLAN/NEEDS.
[2024-01-31 12:00] VITALS: BP 170/96; PULSE 89; RESP 18; TEMP 36.5; O2SAT 99
[2024-01-31] MEDS: Aspirin 325 MG TABLET PO (12:55)
[2024-01-31] MEDS: amLODIPine Besylate 2.5 MG TABLET PO (12:56)
--- NOTE | 2024-01-31 15:07 | HO.POSTANES ---
Post Anesthesia Evaluation Post Anesthesia Evaluation Date of Service: 01/31/24 Vital Signs: Vital Signs Temp Pulse Resp BP Pulse Ox O2 Del Method 01/31/24 12:00 97.7 F 89 18 170/96 H 99 Room Air 01/31/24 09:54 98.0 F 68 18 155/89 H 97 Room Air 01/31/24 07:47 97.4 F 76 18 178/93 H 100 Room Air Anesthesia: General Endotracheal-GETA Mental Status: Awake Pain Control: Satisfactory Nausea/Vomiting: None Hydration: Adequate Anesthesia-Related Issues: No Anes. Related Issues
[2024-01-31] MEDS: 0.9 % Sodium Chloride Flush 3 ML SYRINGE IVFLUSH (15:23)
[2024-01-31 15:47] VITALS: BP 156/85; PULSE 100; RESP 18; TEMP 37.3; O2SAT 99
--- NOTE | 2024-01-31 16:04 | P.DS_ITS ---
DS: Providers Provider Date of Service: 01/31/24 Date of admission: 01/30/24 09:04 Primary care physician: Johnathon Desir MD Consults: 01/30/24 20:36 Consult to Hospitalist Routine Comment: post op likely due to pain Consulting Provider: Hospitalist Reason For Exam: HTN -Reports htn prior to sx but no treatment DS: Diagnosis Discharge Diagnosis (1) Obesity: Status: Acute DS: Summary Hospital Course Hospital Course: The patient underwent a successful right tibial plateau ORIF, they were transferred to PACU and then to the floor to recover. During their stay, their vitals were stable, afebrile at 99.1. Labs were unremarkable, H/H 12.8/35.6. POD 1 they were started on Aspirin 325mg po bid for DVT ppx, they also received Physical Therapy services twice a day. Prior to discharge, their dressing was clean dry and intact and he was placed into a knee brace locked in extension. The plan was to be discharged home. Time Attestation Discharge Coordination Time (in mins): 30 Quality: Safe Use of Opioids Does Pt have an Active Cancer Diagnosis on the Problem List?: No Quality: Stroke Does the patient have a stroke diagnosis?: No Physical Exam Vital Signs: Vital Signs: Last Vital Signs Temp 99.1 F 01/31/24 15:47 Pulse 100 01/31/24 15:47 Resp 18 01/31/24 15:47 BP 156/85 H 01/31/24 15:47 Pulse Ox 99 01/31/24 15:47 O2 Del Method Room Air 01/31/24 15:47 O2 Flow Rate 2 01/30/24 15:55 BMI result Body Mass Index 31.5 Const: General: cooperative, healthy appearing and no acute distress Resp: Effort & Inspection: normal respiratory effort and able to speak in complete sentences Cardio: Rate: regular rate Peripheral pulses: Peripheral pulses 2+ throughout GI: Palpation (GI): Soft to palpation Skin: Lesions: no lesions Rashes: no rashes Extrem: Other: Right lower extremity compartments are soft. Incision site is clean dry and intact. Bandage intact. NVI. DS: Data Data Completed and Pending Labs on day of discharge: Laboratory Results - last 24 hr 01/31/24 06:03 WBC 16.2 H RBC 4.43 L Hgb 12.8 L Hct 35.6 L MCV 80.4 MCH 28.9 MCHC 36.0 RDW 11.7 Plt Count 412 H D MPV 9.4 Immature Gran % (Auto) 0.5 H Neut % (Auto) 73.4 H Lymph % (Auto) 13.4 L Kimball % (Auto) 12.0 H Eos % (Auto) 0.4 Baso % (Auto) 0.3 Lymph # (Auto) 2.2 Kimball # (Auto) 2.0 H Eos # (Auto) 0.1 Baso # (Auto) 0.1 Abs Immat Gran (auto) 0.08 H Absolute Neuts (auto) 11.9 H Absolute Nucleated RBC 0.000 Nucleated RBC % (auto) 0.0 Smear Tech's Comments VERIFIED Sodium 137 Potassium 3.8 Chloride 100 Carbon Dioxide 25 Anion Gap 16 BUN 13 Creatinine 0.81 Estim Creat Clear Calc 132.6 Estimated GFR > 60 Fasting Glucose 112 H Calcium 9.4 Discharge Plan Discharge Patient Disposition: Home, Self-Care Referrals: Brunilda Guerra PA-C [Physician Wool Sorter] - 02/08/24 11:15 am Johnathon Desir MD [Primary Care Provider] - 1 Week Discharge Medications: New acetaminophen 325 mg Tablet 650 mg PO Q6H PRN (Reason: Pain, Mild (Pain Scale 1-3)) 30 Days Qty: 240 0RF aspirin 325 mg Tablet 325 mg PO BID 42 Days Qty: 84 0RF amlodipine 2.5 mg Tablet 2.5 mg PO DAILY 30 Days Qty: 30 0RF Protocol: Hold for SBP< HOLD for SBP < : 90 celecoxib 200 mg Capsule 200 mg PO BID 30 Days Qty: 60 0RF docusate sodium 100 mg Capsule 100 mg PO BID 30 Days Qty: 60 0RF oxycodone 5 mg Tablet 10 mg PO Q4H PRN (Reason: Pain, Moderate(Pain Scale 4-6)) 7 Days Qty: 42 0RF Rx Instructions: Partial Fill upon patient request. Continued (DME) gerson Quesada See Rx Instructions .MEDSUPPLY Qty: 1 0RF Rx Instructions: Folding Front wheeled walker acetaminophen [Tylenol Extra Strength] 500 mg tablet 500 mg PO Q6H PRN (Reason: pain) Qty: 30 0RF ibuprofen 600 mg tablet 600 mg PO Q6H PRN (Reason: pain) Qty: 30 0RF levocetirizine [Xyzal] 5 mg tablet 5 mg PO DAILY Discharge Orders: Discharge Order (Routine); Ordered 01/31/24 Ordered By: Brunilda Guerra Diet: Advance to usual diet Activity on Discharge: Walk with crutches Stand Alone Forms: Patient Portal Discharge page Print Language: Bolivian Activity Restrictions/Additional Instructions: * NWB x6 weeks * NWB ROM as tolerated beginning 2 weeks post op * Dressing changes as needed * No tub bath or shower-Keep dressing clean, dry and intact * Follow up with orthopedics in 2 weeks Care Plan Goals: see above Health Concerns: none Plan of Treatment: see above Assessment: stable for d/c
--- NOTE | 2024-01-31 16:27 | P.F2F_ITS ---
Service Date Service Date: 01/31/24 Encounter Date of encounter: 01/31/24 Reasons for Services Signs and symptoms assessed: s/p right tibial plateau ORIF Pt. is considered homebound due to recent surgery. Unable to drive, poor balance, poor gait mechanics. Reason for physical therapy: home safety and mobility, therapeutic exercises, restore joint function, gait/transfer training, assess need for DME and ADL training Reason for occupational therapy: home safety and mobility, therapeutic exercises, restore joint function, gait/transfer training, assess need for DME and ADL training Homebound: Leaving the home is medically contraindicated at this time without the asist of a device and/or another person due th the listed conditions above and below. Reason homebound: unsteady gait / fall risk, leg weakness, pain with ambulation, pain with transfers, poor balance / fall risk, non-weight bearing and unable to drive Certification: Based on the above findings, I certify that this patient is confined to the home and needs intermittent long term care, physical therapy and/or speech therapy, or continues to need occupational therapy. The patient is under my care, and I have initiated the establishment of the plan of care. The patient will be followed by a physician who will periodically review the plan of care. Time Spent With Patient Time: Total time managing care of this patient today ____ minutes.
--- NOTE | 2024-01-31 16:30 | MHC.CM.PN ---
DP: PT HAS BEEN MEDICALLY CLEARED TO DC HOME WITH [facility] FOR P.T.. ROSA NOTIFIED OF DC. PT HAS OWN RIDE HOME
--- NOTE | 2024-02-05 09:26 | W.PM.OPN ---
Operative Note Operative Note Date of Service: 01/30/24 Narrative: Date of Service: 01/30/24 Pre-op diagnosis: Right tibial plateau fracture Post-op diagnosis: same Procedure: ORIF right tibial plateau fracture Implants: Winnie lateral tibial plateau locking plate Hydroset bone substitute 10 ml Surgeon: Trever Cartwright MD Anesthesia: GETA and local Was an Supervisor [employer] Former used for this Procedure?: Yes Supervisor [employer] Former: Chandler Chinchilla Estimated blood loss (mL): 50 Tourniquet time (min): 89 IV fluids (mL): 1,200 Pathology: none sent Condition: stable Disposition: PACU Patient was brought to the operating room and placed supine on the surgical table. He was prepped and draped in standard sterile fashion and a time out was called to identify proper site, proper procedure and IV antibiotics per weight were administered. I began by exsanguinating the limb. I then made a curvilinear incision over the ITB extending distally over the joint line and arching anteriorly over Gerdy's tubercle. Full thickness skin flaps were developed and the ITB was incised in line with the skin incision. The capsule was identified and then incised releasing hematogenous fluid. THe coronal ligaments were transected and the lateral meniscus was tagged and retracted proximally. There was split-depressed lateral plateau fracture. I elevated the ITB off of Gerdy's tubercle and lateral and distal to this I made a small cortical window and placed a tamp through this. Under both radiographic and direct visualization I tamped up the articular surface until I was satisfied that the articular anatomy was as closely reproduced as possible. I made small incision medially and placed a large C-clamp over the plateau and reduced the lateral fragment. At the same time I placed 10 ml of Hydroset through the cortical window. Once this was dry a lateral locking plate was selected and then placed. Using standard AO technique my proximal locking screws and distal non-locking cortical screws were placed. Biplanar fluro was used to confirm fracture reduction and hardware alignment. Once I was satisfied with both final fluorscopic images were taken. The tourniquet was then let down and there was no brisk bleeding. The anterior compartment fascia was left open. A layered closure was performed with the meniscus repaired to the capsule laterally and then the ITB and then skin with absorbable subq and the cara. Sterile dressings were applies and a hinged knee brace as well. Patient was extubated and brought to the recovery room in stable condition. There were no known complications.
== END 2024-01-31 16:42 | disposition home or self-care (01) ==
LOC: HO.SSSA 09:07 → HO.S3 15:05
PROVIDERS: Orthopaedic Surgery; Admitting Provider Physician Assistant; PCP Internal Medicine; Visit Provider Physician Assistant
PROC: (CPT 27535; principal; 2024-01-30 11:10)
DX: S82.141A Displaced bicondylar fracture of right tibia, initial encounter for closed fracture (principal); X58.XXXA Exposure to other specified factors, initial encounter; Y93.9 Activity, unspecified; Y92.9 Unspecified place or not applicable; Y99.9 Unspecified external cause status; E66.9 Obesity, unspecified; Z68.31 Body mass index [BMI] 31.0-31.9, adult
CPT/HCPCS: 27535; 36415; 80048; 85025; 96361; 96365; 96366; 96367; 96375; 96376; 97161; 97165; C1713; J0131; J0690; J1100; J1170; J1920; J2250; J2405; J2704; J2795; J3010; J7120

== ENCOUNTER → 2024-01-30 09:04 | Outpatient (BNV) | payer OTHER, SELFPAY | PROVIDERS: Admitting Provider Physician Assistant; PCP Internal Medicine; Visit Provider Orthopaedic Surgery | DX: S82.141D Displaced bicondylar fracture of right tibia, subsequent encounter for closed fracture with routine healing (principal) | CPT/HCPCS: 27236; 27536; 99024; G0180 ==

== ENCOUNTER → 2024-01-30 09:04 | Outpatient (BNV) | payer OTHER, SELFPAY | PROVIDERS: Admitting Provider Physician Assistant; PCP Internal Medicine; Visit Provider Nurse Practitioner Acute Care | DX: E66.9 Obesity, unspecified (principal); Z68.31 Body mass index [BMI] 31.0-31.9, adult | CPT/HCPCS: 99222 ==

== ENCOUNTER 2024-02-08 09:11 | Outpatient (REF) | payer OTHER, SELFPAY ==
--- NOTE | ~2024-02-08 | XR_ITS ---
EXAMINATION: XR KNEE, RIGHT CLINICAL INFORMATION: Pain. COMPARISON: Radiographs dated 01/20/2024. TECHNIQUE: AP, lateral, tunnel, and sunrise views of the right knee. FINDINGS: A comminuted fracture is again seen of the proximal right tibia, with fracture line extension into the lateral plateau. Fracture fragments are well-aligned, with intact orthopedic fixator plate and fixator screws. No hardware failure or loosening is seen. The joint space compartments are well-maintained. There is a moderate joint effusion. There are lateral and medial surgical clips. XR/XR knee RT 2V IMPRESSION: There is well-maintained alignment status-post ORIF of a complex proximal right tibial fracture. No hardware failure or loosening is seen. There is a moderate joint effusion.
== END 2024-02-08 09:12 | disposition home or self-care (01) ==
LOC: HO.HOSX 09:11
PROVIDERS: Visit Provider Physician Assistant
DX: M25.561 Pain in right knee (principal)
CPT/HCPCS: 73560

== ENCOUNTER 2024-02-08 11:15 | Outpatient (AMB) | payer OTHER, SELFPAY ==
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
[2024-02-08 11:20] VITALS: BP 134/90; PULSE 93
== END 2024-02-08 11:32 | disposition home or self-care (01) ==
PROVIDERS: PCP Internal Medicine; Visit Provider Internal Medicine
DX: S82.141A Displaced bicondylar fracture of right tibia, initial encounter for closed fracture (principal)
CPT/HCPCS: 99213

== ENCOUNTER 2024-02-08 14:46 | Outpatient (AMB) | payer OTHER, SELFPAY ==
--- NOTE | 2024-02-08 14:57 | MHC.OFFVIS ---
Intake Visit Reasons: PO RT ORIF tibial plateau 01/31/24 NE Intake Note: Sai is a 33 year old male who presents today for a post op appointment s/p RT ORIF tibial plateau 01/31/24 NE. Patient reports he is having pain. He states that he has been doing PT at home. Allergies shellfish Allergy (Unknown, Uncoded 02/08/24 11:21) Itchiness HPI HPI PO RT ORIF tibial plateau 01/31/24 NE: Details: 33-year-old male who presents in the office today 9 days status post right tibial plateau ORIF, which was performed on 01/30/[address] Cartwright. While in the office today the patient reports he is having pain. He confirms working with physical therapy at home. [facility] Medical History (Updated 02/02/24 @ 00:02 by John Menjivar) Edema of right lower extremity Allergic rhinitis Obesity Tinea corporis Physical exam Shoulder pain Surgical History (Updated 02/08/24 @ 15:06 by Denise Campbell) Hx of wisdom tooth extraction History of inguinal hernia repair History of repair of ACL Social History (Updated 01/25/24 @ 10:57 by Sahra Cid [facility]) Housing: House Alcohol intake: current Alcohol intake frequency: former alcohol drinker Alcohol type: beer Patient Tobacco Use Status: Never used Tobacco e-Cigarette/Vaping Use: Never Used Second Hand Smoke Exposure: No Substance Use Type: Marijuana service: No Current occupational status: employed Current occupation: [employer], right hand dominant Cognitive needs: No Hearing needs: No Vision needs: No Review of Systems Const All systems reviewed & are unremarkable except as noted in HPI and below Physical Exam Const General: cooperative, healthy appearing and no acute distress Resp Effort & Inspection: normal respiratory effort and able to speak in complete sentences Cardio Rate: regular rate Peripheral pulses: Peripheral pulses 2+ throughout GI Palpation (GI): Soft to palpation Skin Lesions: no lesions Rashes: no rashes Extrem Other: Right knee: Incision site is clean, dry, and intact. Ar intact. No surrounding erythema or drainage. No signs of infection. Able to dorsiflex and plantarflex. NVI. Assessment & Plan Assessment & Plan (1) Tibial plateau fracture, right: Comment: Right tibial plateau ORIF 01/30/2024 NE Code(s): S82.141A - Displaced bicondylar fracture of right tibia, initial encounter for closed fracture Category: Surgical Plan Mr. Piña is a 33-year-old male who presents in the office today 9 days status post right tibial plateau ORIF, which was performed on 01/30/[address] Cartwright. While in the office today the patient reports he is having pain. He confirms working with physical therapy at home. Ar were removed and steri-stripes were applied. He will remain in the ACL brace at this time. A referral for formal physical therapy was placed at this time. He will remain non-weight bearing for three months post-op. Follow up will be in four weeks, or sooner if needed. X-rays of the right knee which were obtained while in the office today and were reviewed by me, Brunilda Guerra PA-C, revealed: Intact orthopedic hardware with routine healing. Orders: Orders XR knee RT 2V Today M25.569 - Pain in unspecified knee PT Evaluation and Treatment Today S82.141A - Displaced bicondylar fracture of right tibia, initial encounter for closed fracture Patient Instructions: Scribed by Denise Campbell medical accounts receivable specialist, for Brunilda Guerra PA-C on 02/08/2024 at 2:47 pm, EST. Coding Level of Care Code Global (80596) Diagnoses Tibial plateau fracture, right S82.141A
== END 2024-02-08 15:30 | disposition home or self-care (01) ==
PROVIDERS: PCP Internal Medicine; Visit Provider Physician Assistant
DX: S82.141A Displaced bicondylar fracture of right tibia, initial encounter for closed fracture (principal)
CPT/HCPCS: 99024

== ENCOUNTER 2024-03-08 07:20 | Outpatient (REF) | payer OTHER, SELFPAY ==
--- NOTE | ~2024-03-08 | XR_ITS ---
EXAMINATION: XR KNEE, RIGHT CLINICAL INFORMATION: Right knee pain. COMPARISON: 02/08/2024. TECHNIQUE: Single AP view of the right knee. FINDINGS: Lateral plate and screw fixation construct is unchanged as compared to prior. Bone cement is again noted in the region of the lateral tibial plateau. The alignment of the lateral tibial plateau fracture appears unchanged. Persistent articular cortical offset is again seen at the lateral tibial plateau, measuring at least 3 mm. Marginal osteophytes are present at both the medial and lateral compartments. No acute osseous findings. Soft tissues are swollen at the knee. XR/XR knee RT 3V IMPRESSION: Unchanged alignment of the lateral tibial plateau fracture status post ORIF. No acute osseous findings. Mild arthrosis at the medial and lateral compartments.
== END 2024-03-08 07:21 | disposition home or self-care (01) ==
LOC: HO.HOSX 07:20
PROVIDERS: Visit Provider Physician Assistant
DX: S82.141D Displaced bicondylar fracture of right tibia, subsequent encounter for closed fracture with routine healing (principal)
CPT/HCPCS: 73562

== ENCOUNTER 2024-03-08 10:38 | Outpatient (AMB) | payer OTHER, SELFPAY ==
--- NOTE | 2024-03-08 10:47 | MHC.OFFVIS ---
Intake Visit Reasons: PO RT ORIF tibial plateau 01/31/24 NE Intake Note: Sai is a 33 year old male who presents today for a post op appointment s/p RT ORIF tibial plateau 01/31/24 NE. Patient reports he is doing well, hasn't had any pain. Patient has two concerns one he is having pain is his shoulder and two when can he return to work?. Allergies shellfish Allergy (Unknown, Uncoded 02/08/24 11:21) Itchiness HPI HPI PO RT ORIF tibial plateau 01/31/24 NE: Details: 33-year-old male who presents in the office today 5 weeks status post right tibial plateau ORIF, which was performed on 01/30/[address] Cartwright.? ? While in the office today, the patient reports he is doing well and does not have any pain. He would like to discuss his [id number] status. The patient confirms attending physical therapy and reports it is going well. He confirms he has been non-weight bearing. ? ? The patient reports pain in the right shoulder.? ? Patient confirms working in a [employer].? ? Patient is accompanied today by a female family member. ? [facility] Medical History (Updated 02/02/24 @ 00:02 by John Menjivar) Edema of right lower extremity Allergic rhinitis Obesity Tinea corporis Physical exam Shoulder pain Surgical History (Updated 02/08/24 @ 15:06 by Denise Campbell) Hx of wisdom tooth extraction History of inguinal hernia repair History of repair of ACL Social History (Updated 01/25/24 @ 10:57 by Sahra Cid [facility]) Housing: House Alcohol intake: current Alcohol intake frequency: former alcohol drinker Alcohol type: beer Patient Tobacco Use Status: Never used Tobacco e-Cigarette/Vaping Use: Never Used Second Hand Smoke Exposure: No Substance Use Type: Marijuana service: No Current occupational status: employed Current occupation: [employer], right hand dominant Cognitive needs: No Hearing needs: No Vision needs: No Review of Systems Const All systems reviewed & are unremarkable except as noted in HPI and below Physical Exam Const General: cooperative, healthy appearing and no acute distress Resp Effort & Inspection: normal respiratory effort and able to speak in complete sentences Cardio Rate: regular rate Peripheral pulses: Peripheral pulses 2+ throughout GI Palpation (GI): Soft to palpation Skin Lesions: no lesions Rashes: no rashes Extrem Other: Right knee: Normal to inspection. No ecchymosis, erythema, or joint effusion. Incision site is well approximated and completely healed. No signs of infection. ROM is 0-110 degrees. NVI.? Assessment & Plan Assessment & Plan (1) Tibial plateau fracture, right: Comment: Right tibial plateau ORIF 01/30/2024 NE Code(s): S82.141A - Displaced bicondylar fracture of right tibia, initial encounter for closed fracture Category: Surgical Plan Mr. Piña is a 33-year-old male who presents in the office today 5 weeks status post right tibial plateau ORIF, which was performed on 01/30/[address] Cartwright.? ? While in the office today, the patient reports he is doing well and does not have any pain. He would like to discuss his nuvtqi-rl-zwqf status. The patient confirms attending physical therapy and reports it is going well. He confirms he has been non-weight bearing. ? ? The patient reports pain in the right shoulder.? ? Patient confirms working in a warehouse.? ? Patient is accompanied today by a female family member.? ? Right knee: We discussed that the patient would remain non-weight bearing for three months post-op. We will extend his out of work status until his follow-up. I educated the patient that this could be extended due to his progression. An updated work note was supplied to the patient. The patient was given my business card and asked to call with any questions or concerns he may have before his follow-up appointment. Follow-up will be on 05/06/2024, or sooner if needed. ? ? Right shoulder: I would like for the patient to schedule an appointment for a formal evaluation of his shoulder pain. However, due to his knee surgery and non-weightbearing status I would like to schedule this after his follow-up on 05/06/2024. I encouraged the patient to use caution with the upper extremity until he is further evaluated. Follow-up will be pending his weight-bearing status and after 05/06/2024, or sooner if needed. ? ? X-rays of the right knee which were obtained while in the office today and were reviewed by me, Brunilda Guerra PA-C, revealed intact orthopedic hardware with routine healing. ? Orders: Orders XR knee RT 3V Today M25.569 - Pain in unspecified knee Patient Instructions: Scribed by Denise Campbell, medical device assembler, for Brunilda Guerra PA-C on 03/08/2024 at 11:49 am, EST.? Coding Level of Care Code Global (63661) Diagnoses Tibial plateau fracture, right S82.141A
== END 2024-03-08 11:37 | disposition home or self-care (01) ==
PROVIDERS: PCP Internal Medicine; Visit Provider Physician Assistant
DX: S82.141A Displaced bicondylar fracture of right tibia, initial encounter for closed fracture (principal)
CPT/HCPCS: 99024

== ENCOUNTER 2024-03-25 09:02 | Outpatient (AMB) | payer OTHER, SELFPAY ==
[2024-03-25 09:03] VITALS: BP 154/98; PULSE 90; O2SAT 98
--- NOTE | 2024-03-25 09:03 | A.OFFPC_ITS ---
Vital Signs 03/25/24 09:03 Height 5 ft 6 in BMI Reason not done Patient refused/unable BP 154/98 H Blood Pressure Location Lt brachial Position Sitting Pulse 90 Pulse Source Pulse Oximeter Pulse Oximetry (%) 98 Oxygen Delivery Method Room Air Intake Visit Reasons: Annual exam Director Of It Operations Required: No Tire Inspector: Not Required per policy Accompanied by: Self / Same As Patient Allergies shellfish Allergy (Unknown, Uncoded 03/25/24 09:04) Itchiness Medication List - Last Reconciled 03/25/24 by Johnathon Desir MD acetaminophen (Tylenol Extra Strength) 500 mg PO Q6H PRN acetaminophen 650 mg (2 x 325 mg) PO Q6H PRN 30 days amlodipine 2.5 mg See Protocol PO DAILY 30 days aspirin 325 mg PO BID 42 days celecoxib 200 mg PO BID 30 days docusate sodium 100 mg PO BID 30 days ibuprofen 600 mg PO Q6H PRN levocetirizine (Xyzal) 5 mg PO DAILY oxycodone 10 mg (2 x 5 mg) PO Q4H PRN 7 days walker Folding Front wheeled walker walker Folding front wheeled walker Tobacco use date assessed: 02/08/24 Dental Screening Dental Screen Date: 02/08/24 HPI Annual exam HPI0 Details hypertension; right knee injury and seeing ortho [facility] Medical History (Updated 03/25/24 @ 12:42 by Johnathon Desir MD) Physical exam Edema of right lower extremity Allergic rhinitis Obesity Tinea corporis Shoulder pain Surgical History (Updated 02/08/24 @ 15:06 by Denise Campbell) Hx of wisdom tooth extraction History of inguinal hernia repair History of repair of ACL Social History (Updated 01/25/24 @ 10:57 by Sahra Cid Ran) Housing: House Alcohol intake: current Alcohol intake frequency: former alcohol drinker Alcohol type: beer Patient Tobacco Use Status: Never used Tobacco e-Cigarette/Vaping Use: Never Used Second Hand Smoke Exposure: No Substance Use Type: Marijuana service: No Current occupational status: employed Current occupation: [employer], right hand dominant Cognitive needs: No Hearing needs: No Vision needs: No Questionnaire PHQ-9 Over the last 2 weeks, how often have you been bothered by any of the following problems? 1. Little interest or pleasure in doing things: not at all 2. Feeling down, depressed, or hopeless: not at all 3. Trouble falling or staying asleep, or sleeping too much: not at all 4. Feeling tired or having little energy: not at all 5. Poor appetite or overeating: not at all 6. Feeling bad about yourself - or that you are a failure or have let yourself or your family down: not at all 7. Trouble concentrating on things, such as reading the newspaper or watching television: not at all 8. Moving or speaking so slowly that other people could have noticed. Or the opposite - being so fidgety or restless that you have been moving around a lot more than usual: not at all 9. Thoughts that you would be better off or of hurting yourself in some way: not at all Total score: 0 Depression Screening Interpretation: Negative Depression Screening Done: Yes 24862 - PHQ-9 Billing: Yes Source: Developed by Drs. Neptali Travis, fOe Jansen, Dakota Jiang and colleagues, with an educational primo from [employer]. Thrive Questionnaire Date Thrive assessed: 01/31/24 FARZANA-7 AMB Questionnaire FARZANA-7 Date FARZANA - 7 assessed: 03/25/24 Feeling nervous, anxious, or on edge: 0 = Not at all Not being able to stop or control worryin = Not at all Worrying too much about different things: 0 = Not at all Trouble relaxin = Not at all Being so restless that it is hard to sit still: 0 = Not at all Becoming easily annoyed or irritable: 0 = Not at all Feeling afraid as if something awful might happen: 0 = Not at all Total FARZANA-7 score (0-4 normal; 5-9 mild; 10-14 moderate; 15-21 severe): 0 Source: Developed by Drs. Neptali Travis, Dakota Gutierrez and colleagues, with an educational primo from [employer]. Review of Systems Const Denies chills, Denies fatigue, Denies headache(s) and Denies weight loss Eyes Denies change in vision, Denies diplopia and Denies eye pain ENT Denies vertigo, Denies dizziness, Denies headache(s) and Denies nasal discharge Card Denies chest pain, Denies rapid heart rate and Denies dyspnea on exertion Resp Denies chest congestion, Denies cough, Denies pain with cough and Denies dyspnea on exertion GI Denies abdominal pain, Denies hematochezia and Denies change in bowel habits Musc Denies myalgias, Denies arthralgias and Denies joint swelling Skin/Breast Denies lesions and Denies unusual bruising Neuro Denies vertigo, Denies dizziness, Denies headache(s) and Denies focal weakness Endo Denies fatigue Physical exam (Primary Care) Vital Signs: Last Vital Signs Pulse 90 03/25/24 09:03 BP 154/98 H 03/25/24 09:03 Pulse Ox 98 03/25/24 09:03 Oxygen Delivery Method Room Air 03/25/24 09:03 Tobacco/Smoking Status: Tobacco use Status Tobacco use date assessed 02/08/24 03/25/24 09:08 Patient Tobacco Use Status Never used Tobacco 03/25/24 09:08 e-Cigarette/Vaping Use Never Used 03/25/24 09:08 PHQ-9: PHQ-9 Score PHQ-9: Total score 0 03/25/24 09:08 Depression Screening Interpretation: Negative Thrive Assessment: Date of Thrive Assessment Date Thrive assessed 01/31/24 03/25/24 09:08 Const General: cooperative, healthy appearing and no acute distress Orientation/consciousness: oriented to person, oriented to place and oriented to time [facility] Head: Yes normal to inspection, Yes normocephalic and Yes atraumatic Mouth: Normal oral and palatal mucosa present and tongue normal Throat: Yes posterior oropharynx normal and Yes uvula midline Eyes General: appearance normal, both eyes and all related structures Neck Neck: Yes normal visual inspection, Yes full ROM and Yes no lymphadenopathy Thyroid: Thyroid normal Carotids: normal carotid upstroke Chest Chest palpation & inspection: normal inspection of the chest Resp Effort & Inspection: normal respiratory effort and able to speak in complete sentences Auscultation: clear to auscultation bilaterally Cardio Jugular venous distension: no JVD Palpation: normal PMI Rate: regular rate Rhythm: regular rhythm Heart sounds: S1 normal heart sound present and S2 normal heart sound present GI Inspection: Yes normal to inspection Palpation (GI): Soft to palpation and No hepatosplenomegaly present Auscultation: normal bowel sounds General: Yes no CVA tenderness Back/Spine/Pelvis Back: no CVA tenderness Skin General skin exam: no rashes or lesions noted Neuro General: oriented to person, oriented to place and oriented to time Extrem General: Yes normal to inspection and Yes full ROM Assessment and Plan Assessment & Plan (1) Physical exam: Code(s): Z00.00 - Encounter for general adult medical examination without abnormal findings (2) Hypertension: Code(s): I10 - Essential (primary) hypertension Orders: Orders Lipid Panel Today Z13.220 - Encounter for screening for lipoid disorders Complete Blood Count Auto Diff Today Z13.0 - Encounter for screening for diseases of the blood and blood-forming organs and certain disorders involving the immune mechanism Comprehensive Victor. Panel Fast Today Z13.9 - Encounter for screening, unspecified Coding Level of Care Code Est Pt Prev Care 18-39y(09251) Diagnoses Physical exam Z00.00 Hypertension I10
== END 2024-03-25 09:20 | disposition home or self-care (01) ==
PROVIDERS: PCP Internal Medicine; Visit Provider Internal Medicine
DX: Z00.00 Encounter for general adult medical examination without abnormal findings (principal); I10 Essential (primary) hypertension
CPT/HCPCS: 99395

== ENCOUNTER 2024-04-19 10:44 | Outpatient (REF) | payer OTHER, SELFPAY | END 2024-04-19 10:45 | disposition home or self-care (01) | LOC: HO.HOSX 10:44 | PROVIDERS: Visit Provider Physician Assistant | DX: Z13.89 Encounter for screening for other disorder (principal) ==

== ENCOUNTER 2024-04-19 12:19 | Outpatient (AMB) | payer OTHER, SELFPAY ==
--- NOTE | 2024-04-19 12:28 | MHC.OFFVIS ---
Intake Visit Reasons: PO RT ORIF tibial plateau 01/31/24 NE-with xray Intake Note: Sai is a 33 year old male who presents today for a post op appointment s/p RT ORIF tibial plateau 01/31/24 NE. Patient reports he is doing well, hasn't had any pain. Patient has been having some soreness. Allergies shellfish Allergy (Unknown, Uncoded 03/25/24 09:04) Itchiness HPI HPI PO RT ORIF tibial plateau 01/31/24 NE-with xray: Details: 33-year-old male who presents in the office today 11 weeks status post right tibial plateau ORIF, which was performed on 01/30/[address] Cartwright.?I last saw the patient in the office on 03/08/24 when he was educated, he will remain non-weight bearing for three months post-op. His out of work status was extending. ? ? While in the office today, the patient reports he is doing well with no pain. He does reports mild soreness. ? ? Patient currently works in a [employer]. ? [facility] Medical History (Updated 03/25/24 @ 12:42 by Johnathon Desir MD) Physical exam Edema of right lower extremity Allergic rhinitis Obesity Tinea corporis Shoulder pain Surgical History (Updated 02/08/24 @ 15:06 by Denise Campbell) Hx of wisdom tooth extraction History of inguinal hernia repair History of repair of ACL Social History Housing: House Alcohol intake: current Alcohol intake frequency: former alcohol drinker Alcohol type: beer Patient Tobacco Use Status: Never used Tobacco e-Cigarette/Vaping Use: Never Used Second Hand Smoke Exposure: No Substance Use Type: Marijuana service: No Current occupational status: employed Current occupation: [employer] right hand dominant Cognitive needs: No Hearing needs: No Vision needs: No Review of Systems Const All systems reviewed & are unremarkable except as noted in HPI and below Physical Exam Const General: cooperative, healthy appearing and no acute distress Resp Effort & Inspection: normal respiratory effort and able to speak in complete sentences Cardio Rate: regular rate Peripheral pulses: Peripheral pulses 2+ throughout GI Palpation (GI): Soft to palpation Skin Lesions: no lesions Rashes: no rashes Extrem Other: Right knee: Incision site is well approximated and completely healed. No signs of infection. Full ROM. NVI. Assessment & Plan Assessment & Plan (1) Tibial plateau fracture, right: Comment: Right tibial plateau ORIF 01/30/2024 NE Code(s): S82.141A - Displaced bicondylar fracture of right tibia, initial encounter for closed fracture Category: Surgical Plan Mr. Piña is a 33-year-old male who presents in the office today 11 weeks status post right tibial plateau ORIF, which was performed on 01/30/[address] Cartwright.?I last saw the patient in the office on 03/08/24 when he was educated, he will remain non-weight bearing for three months post-op. His out of work status was extending. ? ? While in the office today, the patient reports he is doing well with no pain. He does reports mild soreness. ? ? Patient currently works in a warehouse.? ? The patient may begin to progress to weight bearing as tolerated with the use of a walker, as he is almost three months of non-weight bearing. He will remain in the brace until physical therapy weans him out of it. Follow-up will be in six weeks, or sooner if needed. ? Patient Instructions: Scribed by Denise Campbell medical lab technologist, for Brunilda Guerra PA-C on 04/19/2024 at 12:43 pm, EST.? Coding Level of Care Code Global (52521) Diagnoses Tibial plateau fracture, right S82.141A
== END 2024-04-19 12:48 | disposition home or self-care (01) ==
PROVIDERS: PCP Internal Medicine; Visit Provider Physician Assistant
DX: S82.141A Displaced bicondylar fracture of right tibia, initial encounter for closed fracture (principal)
CPT/HCPCS: 99024

== ENCOUNTER 2024-05-09 10:00 | Outpatient (RCR) | payer OTHER, SELFPAY ==
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
--- NOTE | 2024-05-27 07:03 | MHC.PT.DC ---
[facility] [place] Office [place] Office [place] Office [address] Juan Ramon Alford 140 [facility] [phone] F: [phone] F: [phone] F: [phone] F: [phone] Physical Therapy Discharge Report Diagnosis: R tibial plateau fx Date of Surgery: 01/30/2024 Date of Evaluation: 02/20/24 Date of Discharge: 05/27/24 Treatments to Date: 14 Cancellations to Date: 2 No Shows to Date: 0 Discharge Status: Discharge Summary: Pt is scheduled to have shoulder surgery and therefore to be d/c for his knee. Electronically signed by: Anastasiya Fernando PT, DPT, ATC Please sign and return to therapist. Thank you for your referral.
== END 2024-05-27 07:03 | disposition home or self-care (01) ==
LOC: HO.PTCHIC 10:00
PROVIDERS: PCP Internal Medicine; Visit Provider Physician Assistant
DX: S82.141D Displaced bicondylar fracture of right tibia, subsequent encounter for closed fracture with routine healing (principal)
CPT/HCPCS: 97110; 97140; 97161; 97530

== ENCOUNTER 2024-05-16 14:07 | Outpatient (AMB) | payer OTHER, SELFPAY ==
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
[2024-05-16 14:15] VITALS: BMI 32.3
== END 2024-05-16 15:50 | disposition home or self-care (01) ==
PROVIDERS: PCP Internal Medicine; Visit Provider Orthopaedic Surgery
DX: S43.101A Unspecified dislocation of right acromioclavicular joint, initial encounter (principal); Z04.3 Encounter for examination and observation following other accident
CPT/HCPCS: 99214

== ENCOUNTER → 2024-05-16 14:07 | Outpatient (BNVA) | payer OTHER, SELFPAY | PROVIDERS: PCP Internal Medicine; Visit Provider Orthopaedic Surgery ==

== ENCOUNTER 2024-05-28 07:11 | Day surgery (SDC) | payer OTHER, SELFPAY ==
--- NOTE | 2024-05-22 13:50 | P.CONAN_ITS ---
Documented by User: Adia Shahid NP 05/22/24 13:52 HPI - Anesthesia Eval Consult details Narrative: 33yo M for Right Shoulder Arthroscopy Acromioplasty (Acromioclavicular Joint Reconstruction) s/p Right Tibial plateau ORIF 01/2024 with GA-ETT 7 PMFSH Active Problems Active Problems: All Active Problems Acromioclavicular joint separation, type 3 (Acute) Hypertension (Acute) Physical exam (Acute) Tibial plateau fracture, right (Acute) Past Medical History Medical History Tibial plateau fracture, right HTN (hypertension) Edema of right lower extremity Allergic rhinitis Obesity Tinea corporis Physical exam Shoulder pain Family History Family history of problems with anesthesia: No Surgical History Surgical History Hx of wisdom tooth extraction History of inguinal hernia repair History of repair of ACL History of Problems with Anesthesia: No Social History Social History Housing: House Alcohol intake: current Alcohol intake frequency: former alcohol drinker Alcohol type: beer Patient Tobacco Use Status: Never used Tobacco e-Cigarette/Vaping Use: Never Used Second Hand Smoke Exposure: No Use of substances other than those prescribed or required for medical reasons: Yes Substance Use Type: Marijuana Are you DNR?: No Advance Directives: No Advance Directives Information Provided: Yes Advance Directives on File: No Recently lost weight without trying: No Nutrition Risks: No Nutritional Risk Poor oral hygiene: No service: No Current occupational status: employed Current occupation: [employer], right hand dominant Cognitive needs: No Hearing needs: No Vision needs: No Meds Allergies Allergy/AdvReac Type Severity Reaction Status Date / Time shellfish Allergy Unknown Itchiness Uncoded 03/25/24 09:04 Home Medications ?Medication ?Instructions ?Recorded ?Confirmed ?Last Taken ?Type levocetirizine 5 mg tablet (Xyzal) 5 mg PO DAILY 03/12/21 03/25/24 01/30/24 02:00 History amlodipine 5 mg tablet 5 mg PO DAILY 05/28/24 05/28/24 05/28/24 History Assessment and Plan Assessment Anesthesia Assessment: Chart Reviewed Final Anesthetic Review Family History of Problems with Anesthesia: No History of Problems with Anesthesia: No Documented by User: Siobhan Fernandez MD 05/28/24 08:17 PMFSH Past Medical History Medical History Tibial plateau fracture, right HTN (hypertension) Edema of right lower extremity Allergic rhinitis Obesity Tinea corporis Physical exam Shoulder pain Surgical History Surgical History Hx of wisdom tooth extraction History of inguinal hernia repair History of repair of ACL Social History Social History Housing: House Alcohol intake: current Alcohol intake frequency: former alcohol drinker Alcohol type: beer Patient Tobacco Use Status: Never used Tobacco e-Cigarette/Vaping Use: Never Used Second Hand Smoke Exposure: No Use of substances other than those prescribed or required for medical reasons: Yes Substance Use Type: Marijuana Are you DNR?: No Advance Directives: No Advance Directives Information Provided: Yes Advance Directives on File: No Recently lost weight without trying: No Nutrition Risks: No Nutritional Risk Poor oral hygiene: No service: No Current occupational status: employed Current occupation: [employer], right hand dominant Cognitive needs: No Hearing needs: No Vision needs: No Meds Allergies Allergy/AdvReac Type Severity Reaction Status Date / Time shellfish Allergy Unknown Itchiness Uncoded 03/25/24 09:04 Home Medications ?Medication ?Instructions ?Recorded ?Confirmed ?Last Taken ?Type levocetirizine 5 mg tablet (Xyzal) 5 mg PO DAILY 03/12/21 03/25/24 01/30/24 02:00 History amlodipine 5 mg tablet 5 mg PO DAILY 05/28/24 05/28/24 05/28/24 History Exam Airway Mallampati Class: II TM Dist: >3cm Neck ROM: Full Heart: rrr Lungs: cta Assessment and Plan Assessment Anesthesia Assessment: Anesthesia Plan Discussed Final Anesthetic Review ASA Class: II Final Preanesthetic Review: No Changes in Pt Med Stat, Meds/Allgs Chart Reviewed, Consent Obtained/Reviewed and Anes Risks/Benef Reviewed Patient Risk: Intermediate Procedure Risk: Intermediate Anesthetic Plan Anesthetic Plan: Regional Block Disposition: Standard PACU
[2024-05-28] VITALS (8 sets, daily range): BP systolic 141–157; BP diastolic 89–107; PULSE 72–105; RESP 16–20; TEMP 36.3–36.9; O2SAT 97–99; BMI 35.5
[2024-05-28] MEDS: Lactated Ringers 1,000 ML 100 ML IVCONT (08:07)
--- NOTE | 2024-05-28 09:19 | MHC.SHP ---
Pre-Procedural Eval Section A - 24 Hr Update-Section A only Date of Service: 05/28/24 The patient is an INPATIENT: No Changes since office visit: No Cold of Flu in the past 2 weeks, No New Medical Problems, No Changes in Medication and No Patient answered all questions The patient has been examined within 24 hours of the surgical procedure. The History & Physical has been completed within 30 days and I have reviewed it.: Yes Section B - Complete if H&P > 30 days Chief Complaint: Dislocation of right acromioclavicular joint, 100% Allergies: Allergies Allergy/AdvReac Type Severity Reaction Status Date / Time shellfish Allergy Unknown Itchiness Uncoded 03/25/24 09:04 Plan I have reviewed the history and physical and performed a pertinent physical examination on my patient. No changes have occurred unless specified. Time Spent With Patient Time: Total time managing care of this patient today ____ minutes.
--- NOTE | 2024-05-28 13:08 | PM.OP ---
Brief Operative Note Date of Service: 05/28/24 Pre-op diagnosis: Right ACJ seperation Post-op diagnosis: same Procedure: Right AC joint reconstruction with allograft and distal clavicle excision Implants: Landa and Nephew endobutton Surgeon: Trever Cartwright MD Anesthesia: GETA and regional Was an Agricultural Sales Representative used for this Procedure?: Yes Agricultural Sales Representative: Chandler Chinchilla Estimated blood loss (mL): 75 IV fluids (mL): 1,000 Pathology: none sent Condition: stable Disposition: PACU
--- NOTE | 2024-06-06 16:11 | P.OP_ITS ---
Operative Note Operative Note Date of Service: 05/28/24 Narrative: Date of Service: 05/28/24 Pre-op diagnosis: Right ACJ seperation Post-op diagnosis: same Procedure: Right AC joint reconstruction with allograft and distal clavicle excision Implants: Landa and Nephew endobutton Surgeon: Trever Cartwright MD Anesthesia: GETA and regional Was an Ballistics Expert used for this Procedure?: Yes Ballistics Expert: Chandler Chinchilla Estimated blood loss (mL): 75 IV fluids (mL): 1,000 Pathology: none sent Condition: stable Disposition: PACU Patient was brought to the operating room and placed in the beach chair position on the surgical table. The site was prepped and draped in standard sterile fashion and a time out was called to identify proper site, proper procedure and IV antibiotics per weight were administered. I began by making a superior incision just anterior to the clavicle and over the AC joint. I dissected down to the AC joint where I was able to visualize the disruption and the superior migration of the clavicle. I began by debriding the tissue of the AC joint and performing a 1 cm distal clavicle excision with a small oscillating saw. Once this was done I used a Passer to bluntly dissect down to the coracoid and passed from medial to lateral passing the wire. A heavier suture was then passed and this was used to pass the graft. The graft was prepared on the back table and each end was whip stitched 8-10 passes. Once I passed the graft I used a Landa and Nephew all suture anchor through the coracoid. This was drilled in standard fashion and the all suture anchor was deployed and I could not dislodge it with proximal force. A suture button was then drilled through the clavicle approximately 3.5 cm from the lateral aspect. This suture was then tied over a button while the AC joint was reduced. This held the AC joint in a reduced position and I then over tied the graft the graft using FiberWire suture. The graft was wrapped around the clavicle and tied superiorly. I then took the shoulder through range of motion and I was happy with the stability of the AC joint. I then irrigated copiously and closed with absorbable suture and skin glue. Sterile dressings were applied and the patient was extubated brought to recovery room stable condition there were no known complications.
== END 2024-05-28 14:41 | disposition home or self-care (01) ==
PROVIDERS: PCP Internal Medicine; Visit Provider Orthopaedic Surgery
PROC: (CPT 29826; principal; 2024-05-28 09:30)
DX: S43.121A Dislocation of right acromioclavicular joint, 100%-200% displacement, initial encounter (principal); M25.511 Pain in right shoulder; V89.2XXA Person injured in unspecified motor-vehicle accident, traffic, initial encounter; Y93.9 Activity, unspecified; Y92.9 Unspecified place or not applicable; Y99.8 Other external cause status; J30.9 Allergic rhinitis, unspecified; E66.9 Obesity, unspecified; Z68.32 Body mass index [BMI] 32.0-32.9, adult; Z98.890 Other specified postprocedural states
CPT/HCPCS: 29824; 23552; C1713; C1762; J0131; J0171; J0665; J0690; J1100; J2250; J2405; J2704; J3010

== ENCOUNTER → 2024-05-28 07:11 | Outpatient (BNV) | payer OTHER, SELFPAY | PROVIDERS: PCP Internal Medicine; Visit Provider Orthopaedic Surgery | DX: S43.131A Dislocation of right acromioclavicular joint, greater than 200% displacement, initial encounter (principal) | CPT/HCPCS: 23120; 23552 ==

== ENCOUNTER 2024-05-31 09:29 | Outpatient (AMB) | payer OTHER, SELFPAY ==
--- NOTE | 2024-05-31 09:31 | MHC.OFFVIS ---
Intake Visit Reasons: OV RT ORIF tibial plateau 01/31/24 NE-with xray Intake Note: Sai is a 33 year old male who presents today for a post operative appointment s/p Right ORIF tibial plateau 01/31/24 w/ Dr Cartwright. Patient is doing well, no pain or discomfort. No other questions or concers at this time. Allergies shellfish Allergy (Unknown, Uncoded 03/25/24 09:04) Itchiness HPI HPI OV RT ORIF tibial plateau 01/31/24 NE-with xray: Details: 33-year-old right hand dominant male who presents in the office today 4 months status post right tibial plateau ORIF, which was performed on 01/30/[address] Cartwright. I last saw the patient in the office on 04/19/24, when he was encouraged to bear weight as tolerated with the use of a walker and recommended to remain in the brace until physical therapy weans him out of it. While in the office today, the patient is doing well with no pain or discomfort in the right knee. He does not have any concerns or questions at this time. [facility] Medical History Tibial plateau fracture, right HTN (hypertension) Edema of right lower extremity Allergic rhinitis Obesity Tinea corporis Physical exam Shoulder pain Surgical History Hx of wisdom tooth extraction History of inguinal hernia repair History of repair of ACL Social History Housing: House Alcohol intake: current Alcohol intake frequency: former alcohol drinker Alcohol type: beer Patient Tobacco Use Status: Never used Tobacco e-Cigarette/Vaping Use: Never Used Second Hand Smoke Exposure: No Substance Use Type: Marijuana service: No Current occupational status: employed Current occupation: [employer], right hand dominant Cognitive needs: No Hearing needs: No Vision needs: No Review of Systems Const All systems reviewed & are unremarkable except as noted in HPI and below Physical Exam Const General: cooperative, healthy appearing and no acute distress Resp Effort & Inspection: normal respiratory effort and able to speak in complete sentences Cardio Rate: regular rate Peripheral pulses: Peripheral pulses 2+ throughout GI Palpation (GI): Soft to palpation Skin Lesions: no lesions Rashes: no rashes Extrem Other: Right knee: Incision site is well approximated and completely healed. No signs of infection. Full ROM. NVI. Assessment & Plan Assessment & Plan (1) Tibial plateau fracture, right: Comment: Right tibial plateau ORIF 01/30/2024 NE Code(s): S82.141A - Displaced bicondylar fracture of right tibia, initial encounter for closed fracture Category: Surgical Plan Mr. Piña is a 33-year-old right hand dominant male who presents in the office today 4 months status post right tibial plateau ORIF, which was performed on 01/30/[address] Cartwright. I last saw the patient in the office on 04/19/24, when he was encouraged to bear weight as tolerated with the use of a walker and recommended to remain in the brace until physical therapy weans him out of it. While in the office today, the patient is doing well with no pain or discomfort in the right lower extremity. He does not have any concerns or questions at this time. The patient can wean back to normal activities as tolerated. Follow up will be PRN for his right knee, or sooner if needed. X-rays of the right lower extremity which were obtained while in the office today and were reviewed by me, Brunilda Guerra PA-C, revealed: Intact orthopedic hardware with routine healing. Patient Instructions: Scribed by Lupe Antunez medical device sales representative, for Brunilda Guerra PA-C on 05/31/24 at 9:46 am EST. Coding Level of Care Code Est Pt Level 3 (94047) Diagnoses Tibial plateau fracture, right S82.141A
== END 2024-05-31 09:54 | disposition home or self-care (01) ==
PROVIDERS: PCP Internal Medicine; Visit Provider Physician Assistant
DX: S82.141D Displaced bicondylar fracture of right tibia, subsequent encounter for closed fracture with routine healing (principal)
CPT/HCPCS: 99213

== ENCOUNTER → 2024-05-31 09:29 | Outpatient (BNVA) | payer OTHER, SELFPAY | PROVIDERS: PCP Internal Medicine; Visit Provider Physician Assistant ==

== ENCOUNTER 2024-06-13 12:56 | Outpatient (AMB) | payer OTHER, SELFPAY ==
--- NOTE | 2024-06-13 13:01 | MHC.OFFVIS ---
Intake Visit Reasons: PO RT shoulder 05/24/24 NE Intake Note: Sai a 33 year old male who presents today for a post operative visit for a post operative visit s/p right shoulder on 05/24/24 NE. Patient reports that he is doing well, states improvement in his pain since his surgery. Allergies shellfish Allergy (Unknown, Uncoded 06/13/24 13:03) Itchiness Medication List - Last Reconciled 06/13/24 by Chandler Chinchilla PA-C acetaminophen (Tylenol Extra Strength) 500 mg PO Q6H PRN acetaminophen 650 mg (2 x 325 mg) PO Q6H PRN 30 days amlodipine 5 mg PO DAILY ibuprofen 600 mg PO Q6H PRN levocetirizine (Xyzal) 5 mg PO DAILY oxycodone 5 mg PO Q4H PRN 7 days walker Folding Front wheeled walker walker Folding front wheeled walker HPI HPI PO RT shoulder 05/24/24 NE: Details: 33-year-old male who returns to the office today for post-op right shoulder Ac joint reconstruction, 05/24/[address] Cartwright. He states he has improvement in his pain since surgery and is doing well overall. He has no other concerns today. [facility] Medical History Tibial plateau fracture, right HTN (hypertension) Edema of right lower extremity Allergic rhinitis Obesity Tinea corporis Physical exam Shoulder pain Surgical History Hx of wisdom tooth extraction History of inguinal hernia repair History of repair of ACL Social History Housing: House Alcohol intake: current Alcohol intake frequency: former alcohol drinker Alcohol type: beer Patient Tobacco Use Status: Never used Tobacco e-Cigarette/Vaping Use: Never Used Second Hand Smoke Exposure: No Substance Use Type: Marijuana service: No Current occupational status: employed Current occupation: [employer], right hand dominant Cognitive needs: No Hearing needs: No Vision needs: No Review of Systems Const All systems reviewed & are unremarkable except as noted in HPI and below Physical Exam Extrem Other: Right AC joint: Incision clean, dry and intact. No redness or drainage. NVI. Results Reviewed Results Reviewed: X-rays of the right shoulder obtained in the office today show intact orthopedic hardware with reduced AC joint. Assessment & Plan Assessment & Plan (1) Acromioclavicular joint separation, type 3: Code(s): S43.109A - Unspecified dislocation of unspecified acromioclavicular joint, initial encounter Category: Medical Plan He will continue with the sling for 4 weeks avoiding any positions behind the plane of the body or dropping elbow below waist height. No lifting 4 weeks. He will begin a course of physical therapy- he was given a print out today to bring with him. I would like to see him back in 4 weeks with x-rays, sooner if needed. Orders: Orders XR clavicle RT Today S42.009A - Fracture of unspecified part of unspecified clavicle, initial encounter for closed fracture PT Evaluation and Treatment Today S43.109A - Unspecified dislocation of unspecified acromioclavicular joint, initial encounter Patient Instructions: Scribed for Chandler Chinchilla PA-C, by Jeff Smith emergency medical technician basic, on 06/13/2024 at 1:00 PM EST.? I, Chandler Chinchilla PA-C, have personally reviewed and agree with the information entered by the scribe. Coding Level of Care Code Global (85406) Diagnoses Acromioclavicular joint separation, type 3 S43.109A
== END 2024-06-13 13:50 | disposition home or self-care (01) ==
PROVIDERS: PCP Internal Medicine; Visit Provider Physician Assistant
DX: S43.109A Unspecified dislocation of unspecified acromioclavicular joint, initial encounter (principal)
CPT/HCPCS: 99024

== ENCOUNTER 2024-07-11 09:19 | Outpatient (AMB) | payer OTHER, SELFPAY ==
--- NOTE | 2024-07-11 09:25 | MHC.OFFVIS ---
Vital Signs 07/11/24 09:41 Height 5 ft 6 in Weight 205 lb BMI 33.1 Intake Visit Reasons: PO-Right AC Joint Recon & Distal Clav Exc 05/28/24 Intake Note: Sai is a 34 year old right hand dominant male who presents today for a post operative appointment s/p Right AC Joint reconstruction w/ Allograft & Distal Clav Excision 05/24/24. He was instructed to do no lifting for 4 weeks and avoiding any positions behind the back. Patient reports that he is doing well, with no concerns. He continues to work with PT. He would like to lighten the restrictions at work. Denies pain, denies numbness and tigngling. Allergies shellfish Allergy (Unknown, Uncoded 07/11/24 09:33) Itchiness HPI HPI PO-Right AC Joint Recon & Distal Clav Exc 05/28/24: Details: Sai is a 34 year old right hand dominant male who presents today for a post operative appointment s/p Right AC Joint reconstruction w/ Allograft & Distal Clav Excision 05/24/24. He was instructed to do no lifting for 4 weeks and avoiding any positions behind the back. Patient reports that he is doing well, with no concerns. He continues to work with PT. He would like to lighten the restrictions at work. Denies pain, denies numbness and tigngling. [facility] Medical History Tibial plateau fracture, right HTN (hypertension) Edema of right lower extremity Allergic rhinitis Obesity Tinea corporis Physical exam Shoulder pain Surgical History Hx of wisdom tooth extraction History of inguinal hernia repair History of repair of ACL Social History Housing: House Alcohol intake: current Alcohol intake frequency: former alcohol drinker Alcohol type: beer Patient Tobacco Use Status: Never used Tobacco e-Cigarette/Vaping Use: Never Used Second Hand Smoke Exposure: No Substance Use Type: Marijuana service: No Current occupational status: employed Current occupation: [employer], right hand dominant Cognitive needs: No Hearing needs: No Vision needs: No Physical Exam Vital Signs: BMI result Body Mass Index 33.1 Extrem Other: Incision clean dry and intact. External rotation to 30 degrees. Abduction to 90 degrees. Forward flexion to 100 degrees. No prominence of the distal clavicle. Assessment & Plan Assessment & Plan (1) Acromioclavicular joint separation, type 3: Code(s): S43.109A - Unspecified dislocation of unspecified acromioclavicular joint, initial encounter Category: Medical Plan: Status post AC joint reconstruction doing very well. May discontinue sling. Absolutely no lifting and continue physical therapy. No work. Follow up in 6 weeks. Coding Level of Care Code Global (29832) Diagnoses Acromioclavicular joint separation, type 3 S43.109A
[2024-07-11 09:41] VITALS: BMI 33.1
== END 2024-07-11 10:31 | disposition home or self-care (01) ==
PROVIDERS: PCP Internal Medicine; Visit Provider Orthopaedic Surgery
DX: S43.109A Unspecified dislocation of unspecified acromioclavicular joint, initial encounter (principal)
CPT/HCPCS: 99024

== ENCOUNTER → 2024-07-11 09:19 | Outpatient (BNVA) | payer OTHER, SELFPAY | PROVIDERS: PCP Internal Medicine; Visit Provider Orthopaedic Surgery ==

== ENCOUNTER 2024-08-07 10:00 | Outpatient (RCR) | payer OTHER, SELFPAY ==
--- NOTE | 2024-06-24 09:40 | MHC.PT.EP ---
[facility] [place] Office [place] Office [place] Office [address] Juan Ramon Alford [address] [phone] F: [phone] F: [phone] F: [phone] F: [phone] Physical Therapy Plan of Care Date of Evaluation: 06/24/24 Date of Surgery: 05/28/2024 Diagnosis: R AC joint dislocation Assessment: Patient is a 34 year old male presenting to PT s/p R AC joint reconstruction 05/28/2024. He presents today with impairments in pain, ROM, posture. Pt's current occupation is at [employer], with baseline physical activities including work, reaching, lifting, ADLs. Pt expresses supervisor intermediates goal of returning to PLOF, and is motivated to work towards this in PT. Clinical presentation today is most consistent with signs and sx associated with R AC joint reconstruction 05/28/2024 and pt will benefit from skilled PT 2 week x 12 weeks to address the following problems and impairments noted upon evaluation: pain, ROM, posture. These problems limit the patient with the following functional activities: work, reaching, lifting, ADLs. The prescribed treatment plan of care is medically necessary. Co-morbidities of hx R tibial plateau ORIF were identified and taken into considerations of plan of care. Pt was educated on HEP, role of PT, prognosis, POC. Frequency and Duration: The patient will be seen 2 x week x 12 weeks Short Term Goals: Pt will demonstrate full R shoulder ROM in 6 weeks. Pt will demonstrate R shoulder MMT strength at least 4/5 for all motions except flexion in 6 weeks. Pt will demonstrate R shoulder flexion MMT at least 4/5 in 8 weeks. Intermediate Goals: Pt will demonstrate improved SPADI score by 13 points in 12 weeks for improved functional mobility. Pt will demonstrate ability to reach and lift without compensation in 12 weeks for return to PLOF. Pt will demonstrate ability to work a full day pending MD clearance in 12 weeks for ability to return to work. Treatment Plan: Modalities to reduce pain, spasms and effusion. Manual therapy to restore motion and function. Therapeutic exercise to improve strength and flexibility. Neuromuscular re-education for posture and balance. Therapeutic activities to return to functional activities of daily living. Electronically signed by: Anastasiya Fernando, PT, DPT, ATC Please sign and return to therapist. Thank you for your referral.
--- NOTE | 2024-09-06 07:47 | MHC.PT.DC ---
[facility] [place] Office [place] Office [place] Office [address] 140 [facility] [phone] F: [phone] F: [phone] F: [phone] F: [phone] Physical Therapy Discharge Report Diagnosis: R AC joint dislocation Date of Surgery: 05/28/2024 Date of Evaluation: 06/24/24 Date of Discharge: 09/06/24 Treatments to Date: 11 Cancellations to Date: 2 No Shows to Date: 0 Discharge Status: Insurance Declined Tx Discharge Summary: Pt insurance did not respond for request for more visits. Pt therefore d/c. Electronically signed by: Anastasiya Fernando, PT, DPT, ATC Please sign and return to therapist. Thank you for your referral.
== END 2024-09-06 07:47 | disposition home or self-care (01) ==
LOC: HO.PTCHIC 10:00
PROVIDERS: PCP Internal Medicine; Visit Provider Physician Assistant
DX: S43.101D Unspecified dislocation of right acromioclavicular joint, subsequent encounter (principal)
CPT/HCPCS: 97110; 97161; 97164

== ENCOUNTER 2024-08-15 09:00 | Outpatient (AMB) | payer OTHER, SELFPAY ==
[2024-08-15 09:03] VITALS: BMI 33.1
--- NOTE | 2024-08-15 09:03 | MHC.OFFVIS ---
Vital Signs 08/15/24 09:03 Height 5 ft 6 in Weight 205 lb BMI 33.1 Intake Visit Reasons: [id number] Joint Recon & Distal Clav Exc 05/28/24 Intake Note: Sai is a 34 year old right hand dominant male who presents today for a post operative appointment s/p Right AC Joint reconstruction w/ Allograft & Distal Clav Excision 05/24/24. At his last visit he was instructed to do no lifting. Patient reports that he is doing well with no concerns. He remains out of work at this time. He will need an estimated RTW date on his paperwork. Allergies shellfish Allergy (Unknown, Uncoded 07/11/24 09:33) Itchiness HPI HPI [id number] Joint Recon & Distal Clav Exc 05/28/24: Details: Sai is a 34 year old right hand dominant male who presents today for a post operative appointment s/p Right AC Joint reconstruction w/ Allograft & Distal Clav Excision 05/24/24. At his last visit he was instructed to do no lifting. Patient reports that he is doing well with no concerns. He remains out of work at this time. He will need an estimated RTW date on his paperwork. [facility] Medical History Tibial plateau fracture, right HTN (hypertension) Edema of right lower extremity Allergic rhinitis Obesity Tinea corporis Physical exam Shoulder pain Surgical History Hx of wisdom tooth extraction History of inguinal hernia repair History of repair of ACL Social History Housing: House Alcohol intake: current Alcohol intake frequency: former alcohol drinker Alcohol type: beer Patient Tobacco Use Status: Never used Tobacco e-Cigarette/Vaping Use: Never Used Second Hand Smoke Exposure: No Substance Use Type: Marijuana service: No Current occupational status: employed Current occupation: [employer], right hand dominant Cognitive needs: No Hearing needs: No Vision needs: No Physical Exam Vital Signs: BMI result Body Mass Index 33.1 Extrem Other: Full motion left shoulder well-healed incision Assessment & Plan Assessment & Plan (1) Acromioclavicular joint separation, type 3: Code(s): S43.109A - Unspecified dislocation of unspecified acromioclavicular joint, initial encounter Category: Medical Plan: Doing well OK to RTW with no overhead lifting > 5 lbs and no lifting over 20 lbs Coding Level of Care Code Global (79190) Diagnoses Acromioclavicular joint separation, type 3 S43.109A
== END 2024-08-15 09:35 | disposition home or self-care (01) ==
PROVIDERS: PCP Internal Medicine; Visit Provider Orthopaedic Surgery
DX: S43.109A Unspecified dislocation of unspecified acromioclavicular joint, initial encounter (principal)
CPT/HCPCS: 99024

== ENCOUNTER 2025-05-20 13:30 | Outpatient (AMB) | payer OTHER, SELFPAY ==
[2025-05-20 13:42] VITALS: BP 138/84; PULSE 71; TEMP 36.5; O2SAT 98; BMI 33.3
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
== END 2025-05-20 14:10 | disposition home or self-care (01) ==
LOC: HO.HMCH 13:31
DX: I10 Essential (primary) hypertension (principal); E78.5 Hyperlipidemia, unspecified; D64.9 Anemia, unspecified; Z78.9 Other specified health status